=== PATIENT | female | born 1950 | race Caucasian/White ===

== ENCOUNTER 2017-07-06 10:04 | Outpatient (CLI) | payer MEDICARE, OTHER ==
--- NOTE | 2017-07-06 11:49 | RAD ---
CHEST TWO VIEWS: History: Dyspnea. Comparison: 06-23-16, 06-18-15 FINDINGS: Two views chest. Atherosclerosis of the aorta. Normal cardiac silhouette. The pulmonary vessels and hilum are normal. Costophrenic angles are clear. Lungs are hyperinflated. Chronic change in the lung bases and the right lung apex. No consolidation. No pneumothorax or osseous abnormality. IMPRESSION: Hyperinflation. Chronic changes. POS: [facility]
== END 2017-07-06 10:05 | disposition home or self-care (01) ==
LOC: RAD 10:04
PROVIDERS: ATTEND Internal Medicine Critical Care Medicine
DX: R06.00 Dyspnea, unspecified (principal); J98.11 Atelectasis
CPT/HCPCS: 71020

== ENCOUNTER 2017-11-24 12:57 | Outpatient (CLI) | payer MEDICARE, OTHER | END 2017-11-24 12:58 | disposition home or self-care (01) | LOC: BICMAMMO 12:57 | PROVIDERS: ATTEND Family Medicine | DX: Z12.31 Encounter for screening mammogram for malignant neoplasm of breast (principal) | CPT/HCPCS: 77063; 77067 ==

== ENCOUNTER 2018-02-25 15:23 | Outpatient (CLI) | payer MEDICARE, OTHER ==
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
== END 2018-02-25 15:24 | disposition home or self-care (01) ==
LOC: TBSIIMAG 15:23
PROVIDERS: ATTEND Orthopaedic Surgery
DX: S73.101A Unspecified sprain of right hip, initial encounter (principal); M16.11 Unilateral primary osteoarthritis, right hip

== ENCOUNTER 2018-04-16 10:31 | Observation (INO) | payer MEDICARE, OTHER ==
[2018-04-16] MEDS ORDERED: Nitroglycerin 2% Ointment 1 INCH/1 GM Packet ONE (10:58)
[2018-04-16 11:01] LABS: #Basophils 0.1 thou/uL (0.0-0.2); #Eosinphils 0.1 thou/uL (0.0-0.7); #Monocytes 0.5 thou/uL (0.11-0.59); #Neutrophils 4.6 thou/uL (1.40-6.50); %Eosinophils 1.1 % (0.0-10.0); %Lymphocytes 27.6 % (21.0-51.0); %Monocytes 6.5 % (0.0-10.0); %Neutrophils 63.8 % (42.0-75.0); Hemoglobin 16.4 g/dL (12.0-16.0); Mean Corpuscular HGB CONC 34.2 g/dL (32.0-36.0); Mean Corpuscular Hemoglobin 30.6 pg (27.0-31.0); Mean Corpuscular Volume 89.5 fL (78.0-98.0); Mean Platelet Volume 7.3 fL (7.4-10.4); Platelet Count 306 thou/uL (130-400); RBC Distribution Width 11.2 % (11.5-14.5); Red Blood Cell (RBC) Count 5.35 mill/uL (4.20-5.40); White Blood Cell (WBC) Count 7.2 thou/uL (4.8-10.8)
[2018-04-16 11:17] LABS: ALT (SGPT) 12 U/L (8-55); AST (SGOT) 17 U/L (5-34); Albumin 4.8 g/dL (3.4-4.8); Alkaline Phosphatase 44 U/L (40-150); Anion Gap 17 mmol/L (10-20); BUN (Urea Nitrogen) 14 mg/dL (9.8-20.1); Bilirubin, Total 0.5 mg/dL (0.2-1.2); CK (CPK) 70 U/L (29-168); Calc. Creatinine Clearance 0 mL/min (70-130); Calcium 10.4 mg/dL (7.8-10.44); Carbon Dioxide 23 mmol/L (23-31); Chloride 101 mmol/L (98-107); Estimated GFR-MDRD 68; Glucose 105 mg/dL (80-115); Protein, Total 8.8 g/dL (6.0-8.3); Sodium 137 mmol/L (136-145)
[2018-04-16 11:19] LABS: CKMB 0.8 ng/mL (0-6.6); Troponin I Less than 0.010 ng/mL (< 0.028)
--- NOTE | 2018-04-16 11:43 | RAD ---
CHEST 1 VIEW: HISTORY: Hypertension. Chest pain. COMPARISON: 07/06/17. FINDINGS: Atherosclerosis of the aorta. Enlarged cardiac silhouette. The pulmonary vessels and hilum are norm al. Costophrenic angles are clear. No consolidation or mass. Previously noted opacity of the right upper lobe is no longer appreciated. No pneumothorax or osseous abnormalities. IMPRESSION: 1. Atherosclerosis. 2. Hyperinflation with chronic changes. POS: [facility]
[2018-04-16] MEDS ORDERED: Labetalol HCl 100 MG/20 ML VIAL SLOW IVP PRN (13:13)
[2018-04-16] MEDS ORDERED: hydrALAZINE 20 MG/ML VIAL SLOW IVP PRN (13:13)
[2018-04-16 13:31] VITALS: BMI 22.1
[2018-04-16] MEDS: cloNIDine 0.1 MG TAB PO PRN (13:46)
[2018-04-16 14:15] LABS: Troponin I 0.019 ng/mL (< 0.028)
[2018-04-16] MEDS ORDERED: ALPRAZolam 0.25 MG TAB PO PRN (14:16)
[2018-04-16] MEDS ORDERED: Mag-Al 1200 mg/1200 mg/30 ML UDCUP PO PRN (14:26)
[2018-04-16] MEDS ORDERED: Ondansetron ODT 4 MG TAB PO PRN (14:26)
[2018-04-16] MEDS ORDERED: Acetaminophen 325 MG TAB PO PRN (14:26)
[2018-04-16] MEDS ORDERED: Senokot 8.6 MG TAB PO PRN (14:26)
[2018-04-16] MEDS ORDERED: Ondansetron HCl/PF 4 MG/2 ML Vial IVP PRN (14:26)
[2018-04-16] MEDS ORDERED: Calcium Carbonate 500 MG ChewTAB PO PRN (14:26)
[2018-04-16] MEDS ORDERED: Nitroglycerin 0.4 MG TAB (25 Tab Bottle) PO PRN (14:26)
--- NOTE | 2018-04-16 14:54 | HP ---
DATE OF ADMISSION: 04/16/2018 PRIMARY CARE PHYSICIAN: Dr. Juanito Montero. CHIEF COMPLAINT: Elevated blood pressure. HISTORY OF PRESENT ILLNESS: The patient is a 67-year-old female with labile hypertension, who presen evert to the emergency room with above complaints. The patient has a long history of hypertension and has tried various different medications. She is c urrently followed by Dr. Hickey. She used to measure her blood pressure on a daily basis; however, she discontinued this a few months ago. From last week onwards, she started checking her blood pressure and has been running high. Her blood pressure in the past has been in 140s. This week, her blood p ressure was running in 180s. She also had palpitations. She also claims to have lot of stress latel y. No chest pain, syncope, or focal neurologic deficit reported. She denies any epistaxis or hematu ana. She also has some chronic pain issues in the hip, which is followed by Dr. Ennis. In the emergency room, her blood pressure was 219/110 with a pulse rate of 115, respirations 70, temp erature 98.3 with O2 saturation 98% on room air. EKG showed sinus tachycardia with nonspecific ST-T- wave changes. A chest x-ray was negative for infiltrate. She received aspirin with nitro patch in [facility] emergency room at [facility]. She was transferred to this facility for admission. The patient denies any recent immobilization, travel, or shortness of breath. PAST MEDICAL HISTORY: 1. Hypertension, labile. 2. Anxiety. 3. Chronic obstructive pulmonary disease. 4. Hypothyroidism. 5. Diverticulosis. 6. Depression. 7. History of paroxysmal supraventricular tachycardia, requiring ablations x2. 8. Coronary artery disease, followed by Dr. Hickey. PAST SURGICAL HISTORY: 1. SVT ablation in 2006 and 2010. 2. Cardiac catheterization [place] [address] Hickey, report unavailable. 3. Carpal tunnel syndrome surgery in 1988. 4. Left shoulder surgery in 1965. 5. Right Shine's neuroma surgery in 1988. ALLERGIES: Patient is allergic to IODINE, PREDNISONE, TAMIFLU, AMBIEN. CURRENT HOME MEDICATIONS: Spiriva 2 puffs b.i.d., levothyroxine 112 mcg daily, Xanax as needed, Can pro 1 tablet daily, vitamin D3 daily. FAMILY HISTORY: Father of suicide. Mother had heart disease. Heart disease runs in her family . SOCIAL HISTORY: She is a former smoker, quit in 1995. She drinks wine almost on a daily basis. She is retired. She lives at home with her . She makes her own decision with the help of her fa mat. She is FULL CODE. REVIEW OF SYSTEMS: The following complete review of systems was negative, unless otherwise mentioned in the HPI or below: Constitutional: Weight loss or gain, ability to conduct usual activities. Sk in: Rash, itching. Eyes: Double vision, pain. ENT/Mouth: Nose bleeding, neck stiffness, pain, te nderness. Cardiovascular: Palpitations, dyspnea on exertion, orthopnea. Respiratory: Shortness of breath, wheezing, cough, hemoptysis, fever, or night sweats. Gastrointestinal: Poor appetite, abdo stanislav pain, heartburn, nausea, vomiting, constipation, or diarrhea. Genitourinary: Urgency, frequen cy, dysuria, nocturia. Musculoskeletal: Pain, swelling. Neurologic/Psychiatric: Anxiety, depressi on. Allergy/Immunologic: Skin rash, bleeding tendency. PHYSICAL EXAMINATION: VITAL SIGNS: As discussed above, last blood pressure was 226/105. GENERAL: A 67-year-old female, anxious appearing. HEENT: Head, atraumatic, normocephalic. Sclerae are anicteric. Moist mucous membrane, no oral lesi on. NECK: Supple, no JVD appreciated. No carotid bruit. LUNGS: Clear to auscultation bilaterally. No wheezing, rales, or rhonchi. HEART: S1 and S2 present. Regular rate and rhythm. No murmur, rubs, or gallops. ABDOMEN: Soft, nontender, bowel sounds present. EXTREMITIES: No edema or calf tenderness. NEUROLOGIC: Grossly nonfocal, moves all 4 extremities. PSYCHIATRY: Alert, awake, oriented x3. SKIN: Warm and dry. LYMPH NODES: No palpable lymph nodes in the neck. PERIPHERAL VASCULAR: Radial pulses palpable bilaterally. MUSCULOSKELETAL: No joint swelling or tenderness. LABORATORY FINDINGS: Troponins were negative. Sodium was 137, potassium 4, creatinine 0.84. LFTs i n normal range. WBC 7.2 with hemoglobin 16.4, platelets 306. EKG and chest x-ray, by my review, as discussed above. IMPRESSION: 1. Hypertensive urgency. This is probably precipitated by underlying stress and anxiety. We will s tart her on sustained-release Cardizem 60 mg twice a day along with clonidine as needed. We will sherman id beta blockers due to history of chronic obstructive pulmonary disease. She has tried Benicar in t he past, which gave her palpitations. I think an atrioventricular thalia blocking agent will be helpf ul with her palpitations and history of supraventricular tachycardia. Her troponin x2 have been nega tive. We will repeat 1 more set of troponin. She has a history of echocardiogram and stress test do ne at Dr. Hickey' office, which has been negative. She was advised to follow up with Dr. Hickey as an ou tpatient. 2. Anxiety/depression. She denies any suicidal ideation. We will continue Xanax. She will probabl y benefit from her antidepressant. 3. Hypothyroidism. We will continue levothyroxine. 4. Chronic obstructive pulmonary disease. We will continue Spiriva and add nebulizer treatment as n eeded. 5. Chronic kidney disease, stage 2. 6. History of paroxysmal supraventricular tachycardia, requiring ablation x2. Plan of care was discussed with the patient. She stated understanding. DISPOSITION: Probably in 24 hours.
[2018-04-16 17:15] LABS: Troponin I 0.036 ng/mL (< 0.028)
[2018-04-16] MEDS: Ipratropium Bromide 2.5 ml Neb NEB SCH (18:16)
[2018-04-16 20:49] LABS: Troponin I 0.015 ng/mL (< 0.028)
[2018-04-16] MEDS ORDERED: Diltiazem HCl SR 60 mg Capsule PO SCH (21:00)
[2018-04-17] MEDS: Ipratropium Bromide 2.5 ml Neb NEB SCH ×2 (00:05→06:26)
[2018-04-17] MEDS: cloNIDine 0.1 MG TAB PO PRN (02:29)
[2018-04-17] MEDS ORDERED: Levothyroxine Sodium 112 MCG TAB PO SCH (06:00)
[2018-04-17 09:02] VITALS: BP 157/76; TEMP 98.2
--- NOTE | 2018-04-18 14:52 | DIS ---
DATE OF ADMISSION: 04/16/2018 DATE OF DISCHARGE: 04/17/2018 DISCHARGE DISPOSITION: Home. FOLLOWUP: 1. Follow up with primary care physician, Dr. Juanito Montero in 1 week. 2. Follow up with Cardiology, Dr. Hickey, in next 2 weeks. ALLERGIES: Patient is allergic to IODINE. DISCHARGE MEDICATIONS: 1. Diltiazem 30 mg 3 times a day. 2. Clonidine as needed. 3. Levothyroxine 112 mcg daily. 4. Spiriva two puffs b.i.d. 5. Vitamin D3 daily. 6. Prempro daily. The patient was seen and examined on the day of discharge, denies any new complaints, no chest pain, shortness of breath, palpitations. Her blood pressure on the day of discharge is 124/57 and 157/76. BRIEF HOSPITAL COURSE: The patient is a 67-year-old female with labile hypertension who presented to the hospital with elevated blood pressure. Please refer to the history and physical for further det ails. The patient was admitted to the hospital with a diagnosis of hypertensive urgency. She responded alma delia y well to IV and oral antihypertensives. She probably has white coat hypertension. Beta blockers we re avoided due to COPD. I think stress and anxiety is probably contributing to her symptoms. She wa s started on low dose Cardizem with good blood pressure response. She was advised to monitor her blo od pressure on a daily basis. She has done echocardiogram and stress test at Dr. Hickey's office in past. Her troponins 3/4 were negative. One troponin was 0.036, probably secondary to elevated blo od pressure. FINAL DIAGNOSES: 1. Hypertensive urgency, resolved. 2. Anxiety, depression. Patient takes Xanax as needed. 3. Hypothyroidism. 4. Chronic obstructive pulmonary disease. 5. Chronic kidney disease stage 2. 6. Indeterminate troponins due to elevated blood pressure. Plan of care was discussed with the patient. She stated understanding.
== END 2018-04-17 09:52 | disposition home or self-care (01) ==
LOC: SCSER 10:31 → 2SW 12:58
PROVIDERS: ADMIT Internal Medicine; ATTEND Internal Medicine
DX: I16.0 Hypertensive urgency (principal); I12.9 Hypertensive chronic kidney disease with stage 1 through stage 4 chronic kidney disease, or unspecified chronic kidney disease; N18.2 Chronic kidney disease, stage 2 (mild); F41.8 Other specified anxiety disorders; E03.9 Hypothyroidism, unspecified; J44.9 Chronic obstructive pulmonary disease, unspecified; I25.10 Atherosclerotic heart disease of native coronary artery without angina pectoris; Z87.891 Personal history of nicotine dependence; Z91.041 Radiographic dye allergy status; Z79.899 Other long term (current) drug therapy; Z88.8 Allergy status to other drugs, medicaments and biological substances
CPT/HCPCS: 71045; 80053; 82550; 82553; 84484 ×2; 85025; 93005; 99285; G0378; 36415; J0360; J7644

== ENCOUNTER 2018-05-07 15:54 | Emergency (ER) | payer MEDICARE, OTHER ==
[2018-05-07] MEDS ORDERED: Nitroglycerin 0.4 MG TAB (25 Tab Bottle) ONE (16:53)
[2018-05-07 17:12] LABS: #Basophils 0.1 thou/uL (0.0-0.2); #Eosinphils 0.1 thou/uL (0.0-0.7); #Lymphocytes 1.6 thou/uL (1.20-3.40); #Monocytes 0.7 thou/uL (0.11-0.59); #Neutrophils 8.2 thou/uL (1.40-6.50); %Basophils 0.7 % (0.0-1.0); %Eosinophils 0.9 % (0.0-10.0); %Lymphocytes 14.8 % (21.0-51.0); %Monocytes 6.5 % (0.0-10.0); %Neutrophils 77.1 % (42.0-75.0); Hemoglobin 15.7 g/dL (12.0-16.0); Mean Corpuscular HGB CONC 33.6 g/dL (32.0-36.0); Mean Corpuscular Hemoglobin 32.1 pg (27.0-31.0); Mean Corpuscular Volume 95.3 fL (78.0-98.0); Mean Platelet Volume 6.4 fL (7.4-10.4); Platelet Count 368 thou/uL (130-400); RBC Distribution Width 11.9 % (11.5-14.5); Red Blood Cell (RBC) Count 4.91 mill/uL (4.20-5.40); White Blood Cell (WBC) Count 10.6 thou/uL (4.8-10.8)
--- NOTE | 2018-05-07 17:13 | RAD ---
PORTABLE CHEST: 05/07/18 HISTORY: Chest pain. COMPARISON: 04/16/18 study. Heart size appears slightly enlarged. There are atherosclerotic changes of the aorta. The lungs are c lear of infiltrative process. There is scoliotic changes of the spine. IMPRESSION: Mild cardiomegaly. POS: [facility]
[2018-05-07 17:33] LABS: ALT (SGPT) 10 U/L (8-55); AST (SGOT) 14 U/L (5-34); Albumin 4.4 g/dL (3.4-4.8); Alkaline Phosphatase 42 U/L (40-150); Anion Gap 18 mmol/L (10-20); BUN (Urea Nitrogen) 13 mg/dL (9.8-20.1); Bilirubin, Total 0.5 mg/dL (0.2-1.2); CK (CPK) 66 U/L (29-168); Calc. Creatinine Clearance 0 mL/min (70-130); Calcium 9.7 mg/dL (7.8-10.44); Carbon Dioxide 18 mmol/L (23-31); Chloride 98 mmol/L (98-107); Estimated GFR-MDRD 67; Globulin 3.5 g/dL (2.4-3.5); Glucose 94 mg/dL (80-115); Lipase 16 U/L (8-78); Potassium 4.8 mmol/L (3.5-5.1); Protein, Total 7.9 g/dL (6.0-8.3); Sodium 129 mmol/L (136-145)
[2018-05-07 17:37] LABS: CKMB 1.1 ng/mL (0-6.6); Troponin I Less than 0.010 ng/mL (< 0.028)
[2018-05-07] MEDS ORDERED: Labetalol HCl 100 MG/20 ML VIAL ONE (18:33)
== END 2018-05-07 19:17 | disposition home or self-care (01) ==
LOC: ERS 15:54
DX: I16.0 Hypertensive urgency (principal); R10.9 Unspecified abdominal pain; F41.9 Anxiety disorder, unspecified; J44.9 Chronic obstructive pulmonary disease, unspecified; I47.1 Supraventricular tachycardia; Z87.891 Personal history of nicotine dependence
CPT/HCPCS: 36415; 71045; 80053; 82550; 82553; 83690; 83880; 84484; 85025; 93005

== ENCOUNTER 2018-05-09 14:46 | Inpatient (IN) | payer MEDICARE, OTHER ==
[2018-05-09 15:20] LABS: #Basophils 0.1 thou/uL (0.0-0.2); #Eosinphils 0.1 thou/uL (0.0-0.7); #Lymphocytes 1.9 thou/uL (1.20-3.40); #Monocytes 0.6 thou/uL (0.11-0.59); #Neutrophils 4.6 thou/uL (1.40-6.50); %Basophils 1.3 % (0.0-1.0); %Eosinophils 1.8 % (0.0-10.0); %Lymphocytes 25.8 % (21.0-51.0); %Monocytes 8.2 % (0.0-10.0); %Neutrophils 62.9 % (42.0-75.0); Hemoglobin 15.7 g/dL (12.0-16.0); Mean Corpuscular HGB CONC 34.5 g/dL (32.0-36.0); Mean Corpuscular Hemoglobin 32.6 pg (27.0-31.0); Mean Corpuscular Volume 94.5 fL (78.0-98.0); Mean Platelet Volume 6.3 fL (7.4-10.4); Platelet Count 369 thou/uL (130-400); RBC Distribution Width 11.8 % (11.5-14.5); Red Blood Cell (RBC) Count 4.81 mill/uL (4.20-5.40); White Blood Cell (WBC) Count 7.3 thou/uL (4.8-10.8)
[2018-05-09] MEDS ORDERED: Lorazepam 2 MG/ML VIAL ONE (15:24)
[2018-05-09] MEDS ORDERED: Nitroglycerin 2% Ointment 1 INCH/1 GM Packet ONE (15:25)
[2018-05-09] MEDS ORDERED: Nitroglycerin 0.4 MG TAB (25 Tab Bottle) ONE (15:25)
[2018-05-09 15:39] LABS: ALT (SGPT) 12 U/L (8-55); AST (SGOT) 19 U/L (5-34); Albumin 4.7 g/dL (3.4-4.8); Alkaline Phosphatase 44 U/L (40-150); Anion Gap 16 mmol/L (10-20); BUN (Urea Nitrogen) 11 mg/dL (9.8-20.1); Bilirubin, Total 0.5 mg/dL (0.2-1.2); CK (CPK) 155 U/L (29-168); Calc. Creatinine Clearance 0 mL/min (70-130); Carbon Dioxide 21 mmol/L (23-31); Chloride 98 mmol/L (98-107); Estimated GFR-MDRD 68; Globulin 3.9 g/dL (2.4-3.5); Glucose 93 mg/dL (80-115); Lipase 18 U/L (8-78); Potassium 3.9 mmol/L (3.5-5.1); Protein, Total 8.6 g/dL (6.0-8.3); Sodium 131 mmol/L (136-145)
[2018-05-09 15:44] LABS: Troponin I Less than 0.010 ng/mL (< 0.028)
--- NOTE | 2018-05-09 16:15 | RAD ---
CHEST 1 VIEW: Date: 05/09/18 HISTORY: Hypertension. Chest pain. COMPARISON: 05/07/18. FINDINGS: Cardiac silhouette remains upper limits of normal in size. Pulmonary vasculature is unremarkable. Daryl gs remain hyperinflated. Mediastinum is midline. No lobar consolidation or evidence of pneumothorax. quality assurance monitor body leads overlie the chest. IMPRESSION: Chronic-type findings are stable. No active cardiopulmonary abnormalities are demonstrated. POS: [facility]
[2018-05-09 16:30] LABS: Bilirubin Negative (Negative); Blood, Urine Negative (Negative); Clarity CLEAR (Clear); Glucose, Urine (Dipstick) Negative (Negative); Leukocyte Negative (Negative); Nitrite Negative (Negative); Protein, Urine (Dipstick) Negative (Neg-Trace); Specific Gravity, Urine 1.008 (1.002-1.036); Urobilinogen 0.2 mg/dL (0.2-1.0); pH, Urine 5.5 (5.0-9.0)
[2018-05-09 19:19] LABS: Troponin I Less than 0.010 ng/mL (< 0.028)
[2018-05-09] MEDS ORDERED: cloNIDine 0.1 MG TAB PO PRN (21:39)
[2018-05-09] MEDS ORDERED: Acetaminophen 500 MG TAB ONE (21:50)
[2018-05-09 22:00] LABS: Troponin I Less than 0.010 ng/mL (< 0.028)
[2018-05-09] MEDS ORDERED: Lisinopril 10 MG TAB PO SCH (22:00)
[2018-05-09] MEDS ORDERED: HYDROcodone/Acetaminophen 5/325 mg Tablet PO PRN (22:44)
[2018-05-09] MEDS ORDERED: Ondansetron ODT 4 MG TAB PO PRN (22:44)
[2018-05-09] MEDS ORDERED: Amlodipine 10 MG TAB PO SCH (23:30)
[2018-05-09 23:55] VITALS: BMI 21.8
[2018-05-10] MEDS: Ipratropium Bromide 2.5 ml Neb NEB SCH ×4 (00:46→18:38)
[2018-05-10] MEDS ORDERED: ALPRAZolam 0.25 MG TAB PO PRN (00:47)
[2018-05-10] MEDS: Labetalol HCl 100 MG/20 ML VIAL SLOW IVP PRN (01:02)
--- NOTE | 2018-05-10 01:18 | HP ---
DATE OF ADMISSION: 05/10/2018 CHIEF COMPLAINT: Elevated blood pressures. HISTORY OF PRESENT ILLNESS: This is a 67-year-old white female with a known history of severe anxiet y disorder. The patient has a known history of hypertension and has huge list of allergies to every antihypertensive medication. She was on clonidine for many years and for the past few weeks she was noticing she was having some itching in the throat. She started stopping most of the medications and she then figured out and when she took a clonidine, she developed itchiness of the throat and she ca lled Dr. Sheppard's office who suggested to stop the clonidine and since then, the patient was having elev ated blood pressures which was measured at 200 systolic at home, so she has decided to come to the ER . In ER, her blood pressures were in 227 and she was unable to take any medications. He says she wa s allergic to LISINOPRIL which causes swelling of her arms. She was allergic to HYDRALAZINE as it ca uses palpitations and she says she is allergic to METOPROLOL, which makes her depressed, which, most of them are side effects. She also complains of allergy to HYDRALAZINE, according to her, which caus es itching of the throat also along with palpitations. The patient denies having any chest pain at t his time. No nausea, no vomiting, no diarrhea, no constipation. When offered Ativan for her, she me ntioned that she has a history of depression and she gets suicidal thoughts on giving Ativan. The pa kim sees Dr. Hickey and her nurse practitioner. PAST MEDICAL HISTORY: 1. Hypertension. 2. Severe anxiety disorder. 3. History of chronic obstructive pulmonary disease. 4. Hypothyroidism. 5. History of depression. 6. History of paroxysmal supraventricular tachycardia. 7. Coronary artery disease. PAST SURGICAL HISTORY: 1. Supraventricular tachycardia ablation in 2006 and 2010. 2. Cardiac catheterization [place] [address] Hickey 3. Carpal tunnel syndrome. 4. Left shoulder surgery. 5. Right Shine's neuroma. ALLERGIES: IODINE, PREDNISONE, TAMIFLU, AMBIEN, HYDRALAZINE, LISINOPRIL, and CLONIDINE. HOME MEDICATIONS: 1. She is on alprazolam 0.25 mg p.o. daily. 2. Tiotropium 1 capsule daily. 3. Estrogen. 4. Levothyroxine. REVIEW OF SYSTEMS: All 12 systems are reviewed with the patient thoroughly and found to be negative at this time. Systems reviewed are HEENT, CVS, FRUIT VENDOR, respiratory, GI, , musculoskeletal, skin, inte gumentary, and psychiatry. All systems are reviewed and found to be negative at this time. The following complete review of systems was negative, unless otherwise mentioned in the HPI or below: Constitutional: Weight loss or gain, sense of well-being, ability to conduct usual activities, exerc ise tolerance. Skin/Breast: Rash, itching, changes in hair growth or loss, nail changes, breast lumps, tenderness, swelling, nipple discharge. Eyes: Vision, double vision, tearing, blind spots, pain. ENT/Mouth: Headaches (location, time of onset, duration, precipitating factors), vertigo, lightheadedness, injury. Vision, double vision, tearing, blind spots, pain, nose b leeding, colds, obstruction, discharge, dental difficulties, gingival bleeding, dentures, neck stiffn ess, pain, tenderness, masses in thyroid or other areas Cardiovascular: Precordial pain, substernal distress, palpitations, syncope, dyspnea on exertion, or thopnea, nocturnal paroxysmal dyspnea, edema, cyanosis, hypertension, heart murmurs, varicosities, ph lebitis, claudication. Respiratory: Pain, shortness of breath, wheezing, stridor, cough, hemoptysis, fever or night sweats Gastrointestinal: Poor appetite, dysphagia, indigestion, abdominal pain, heartburn, eructation, naus ea, vomiting, hematemesis, jaundice, constipation, or diarrhea, abnormal stools (ashly-colored, tarry, bloody, greasy, foul smelling), flatulence, hemorrhoids, recent changes in bowel habits. Genitourinary: Urgency, frequency, dysuria, nocturia, hematuria, polyuria, oliguria, unusual (or mari nge in) color of urine, stones, hesitancy, change in size of stream, dribbling, acute retention or in continence, libido, potency. Musculoskeletal: Pain, swelling, redness or heat of muscles or joints, limitation, of motion, muscular weakness, atrophy, cramps. Neurologic/Psychiatric: Convulsions, paralyses, tremor, incoordination, parasthesias, difficulties w ith memory of speech, sensory or motor disturbances, or muscular coordination (ataxia, tremor), emoti onal problems, anxiety, depression, previous psychiatric care, unusual perceptions, hallucinations. Allergy/Immunologic: Skin rash, anemia, bleeding tendency, polydipsia, polyuria, intolerance to heat or cold. FAMILY HISTORY: Father of suicide and heart disease runs in her family. SOCIAL HISTORY: She is a former smoker. No history of alcohol, no history of illicit drug use. She lives independently with her . PHYSICAL EXAMINATION: VITAL SIGNS: Blood pressure is 183/80, heart rate 78, respiratory rate 16, saturation 98%. GENERAL: The patient is moderately built and moderately nourished. She does not appears to be in ac makah distress at this time, alert, oriented x3. HEENT: Atraumatic, normocephalic, PERRLA. Extraocular muscles intact. Oral mucosa is pink and mois t. CARDIOVASCULAR: S1, S2 normal. No murmurs, rubs or gallops. LUNGS: Bilateral air entry was equal. No wheezing, no crackles. ABDOMEN: Soft, nontender. No guarding or rebound tenderness. Bowel sounds normal. MUSCULOSKELETAL: No calf tenderness. No pedal edema. No joint tenderness. No joint swelling. SKIN: No cyanosis, no erythema, no rash, no pallor. FRUIT VENDOR: Cranial nerve examination II through XII intact. No focal deficits are noted. LABORATORY DATA: Show WBC 7.3, hemoglobin 15.5, hematocrit 45.5 and platelets 369. Sodium is 131, p otassium 3.9, chloride is 98, BUN is 11, creatinine 0.84. UA was negative for any UTI. IMAGING DATA: Chest x-ray was unremarkable. No evidence of any acute cardiopulmonary process. ASSESSMENT: 1. Hypertensive urgency. 2. Severe anxiety disorder. 3. History of chronic obstructive pulmonary disease. 4. Hyperlipidemia. 5. History of coronary artery disease. 6. History of paroxysmal atrial fibrillation. PLAN: 1. Plan is to closely monitor this patient as she has multiple allergies. We will consult Cardiolog y to address her hypertension. At this time, there is no other medication left except her labetalol. We will use labetalol 20 mg q.6 hours for systolic more than 160. If she tolerates this, we will p silvia to change to p.o. labetalol 200 mg t.i.d. 2. The patient has severe anxiety disorder. She would definitely benefit from getting a psych opini on as outpatient. She needs to be started on some definitive anxiety medications, she is on alprazol am. She takes as needed and she has high risk for suicides according to her with benzodiazepines. 3. The patient has history of coronary artery disease. We will restart the patient on aspirin at th is time. 4. She has history of COPD, no evidence of any COPD exacerbation is noted. 5. Deep venous thrombosis prophylaxis, Lovenox. I spent 75 minutes with this patient at the time of dictation.
[2018-05-10 05:57] LABS: #Eosinphils 0.2 thou/uL (0.0-0.7); #Lymphocytes 1.6 thou/uL (1.20-3.40); #Monocytes 0.7 thou/uL (0.11-0.59); #Neutrophils 4.5 thou/uL (1.40-6.50); %Basophils 0.6 % (0.0-1.0); %Eosinophils 2.4 % (0.0-10.0); %Lymphocytes 23.3 % (21.0-51.0); %Neutrophils 63.7 % (42.0-75.0); Hemoglobin 12.9 g/dL (12.0-16.0); Mean Corpuscular Volume 94.3 fL (78.0-98.0); Mean Platelet Volume 6.5 fL (7.4-10.4); Platelet Count 318 thou/uL (130-400); RBC Distribution Width 11.7 % (11.5-14.5); Red Blood Cell (RBC) Count 3.92 mill/uL (4.20-5.40)
[2018-05-10 06:14] LABS: Anion Gap 12 mmol/L (10-20); BUN (Urea Nitrogen) 10 mg/dL (9.8-20.1); Calc. Creatinine Clearance 74 mL/min (70-130); Calcium 9.1 mg/dL (7.8-10.44); Carbon Dioxide 22 mmol/L (23-31); Chloride 101 mmol/L (98-107); Estimated GFR-MDRD 85; Glucose 86 mg/dL (80-115); Potassium 3.5 mmol/L (3.5-5.1); Sodium 131 mmol/L (136-145)
[2018-05-10] MEDS: Levothyroxine Sodium 112 MCG TAB PO SCH (06:17)
[2018-05-10] MEDS: Amlodipine 10 MG TAB PO SCH (08:38)
[2018-05-10] MEDS: Acetaminophen 325 MG TAB PO PRN ×2 (08:39→15:45)
[2018-05-10] MEDS: Enoxaparin Sodium 40 MG/0.4 ML SYRINGE SC SCH (08:40)
[2018-05-10] MEDS: Docusate 100 MG CAP PO SCH ×2 (08:40→19:44)
[2018-05-10] MEDS ORDERED: MEDROXYPROGESTERONE PO SCH (09:00)
[2018-05-10] MEDS ORDERED: [UNRECOGNIZED DRUG - OTHER] PO SCH (09:00)
[2018-05-10] MEDS ORDERED: Spiriva 18 MCG CAP (Box of 5 Caps) INH SCH (09:00)
[2018-05-10] MEDS ORDERED: CONJUGATED ESTROGENS PO SCH (09:00)
[2018-05-10] MEDS ORDERED: Lisinopril 10 MG TAB PO SCH (09:00)
[2018-05-10] MEDS ORDERED: Famotidine/PF 20 mg/2ml Vial SLOW IVP SCH (09:00)
[2018-05-10] MEDS ORDERED: Prevnar 13-Val Conj/PF 0.5 ML SYRINGE IM ONE (09:00)
--- NOTE | 2018-05-10 11:25 | PDOC.PN ---
- Subjective Encounter Start Date: 05/10/18 Encounter Start Time: 11:23 Ms. Robles was seen today in follow-up. She has multiple medical complaints. - Objective Resuscitation Status: Resuscitation Status FULL:Full Resuscitation Vital Signs & Weight: Vital Signs (12 hours) Temp Pulse Resp BP BP Pulse Ox 05/10/18 08:38 82 05/10/18 08:00 97.8 F 82 15 05/10/18 07:12 97.8 F 82 15 170/78 H 99 05/10/18 04:22 98 05/10/18 03:44 97.7 F 72 16 154/72 H 98 05/10/18 01:32 146/67 H 05/10/18 01:02 78 205/90 H 05/10/18 00:36 205/91 H 05/10/18 00:01 97.4 F L 78 16 183/80 H 98 05/09/18 23:41 78 183/80 H Weight Weight 131 lb 5 oz I&O: 05/09/18 05/10/18 05/11/18 06:59 06:59 06:59 Intake Total 850 Balance 850 Result Diagrams: 05/10/18 05:32 05/10/18 05:32 Phys Exam - Physical Examination HEENT: PERRLA Respiratory: no wheezing, no rales, no rhonchi, clear to auscultation bilateral Cardiovascular: RRR, no significant murmur, no rub Gastrointestinal: soft, non-tender, positive bowel sounds Musculoskeletal: no edema Dx/Plan (1) Anxiety Code(s): F41.9 - ANXIETY DISORDER, UNSPECIFIED Status: Acute (2) Hypertensive urgency Code(s): I16.0 - HYPERTENSIVE URGENCY Status: Acute - Plan * HTN- blood pressure is a bit elevated- she unfortunately has a lot of side effects to multiple medications,and has tried some in the past but does not remember the reactions- Will consult Dr. Mendoza for evaluation, and I suspect she can be discharged home later today after CArdiology evaluation..
[2018-05-10] MEDS ORDERED: Carvedilol 3.125 MG TAB PO SCH (19:45)
[2018-05-10] MEDS: Famotidine 20 MG TAB PO SCH (19:45)
[2018-05-10] MEDS: ALPRAZolam 0.25 MG TAB PO PRN (21:19)
[2018-05-11] MEDS: Ipratropium Bromide 2.5 ml Neb NEB SCH ×4 (00:08→19:25)
--- NOTE | 2018-05-11 01:58 | CON ---
DATE OF CONSULTATION: 05/10/2018 HISTORY OF PRESENT ILLNESS: Ivette Robles is a 67-year-old white female patient of Dr. Hickey. She was admitted with difficult to control hypertension. She has previously undergone cardiac catheterization by Dr. Hickman in [facility] and apparently had mild disease in the right coronary artery. She also has undergone ablation of SVT in 07/2007 and in 02/2008. She has had problems with all types of blood pressure medicines. In talking with her about her side effects, she tends to have a lot of perioral paresthesias type feelings as well as feeling that things crawling on her head and sometimes problems with breathing whenever she takes certain types of medications. She now comes in with poorly controlled blood pressure again. I am not certain that there is anything acutely different than before. She denies any chest discomfort or shortness of breath. PAST MEDICAL HISTORY: Hypertension in general on no medications, hypothyroidism , COPD, history of SVT with ablation x2, anxiety, ischemic colitis. OPERATIONS: Shoulder surgery, removal of ganglion from right foot, carpal tunnel surgery, and right wrist surgery. CURRENT MEDICATIONS: Alprazolam 1 tablet daily p.r.n., levothyroxine 112 mcg daily, Spiriva 1 capsule daily, Spiriva 2 puffs b.i.d., Prempro 1 daily. ALLERGIES: IODINE, OLMESARTAN, CLONIDINE, DILTIAZEM, HYDRALAZINE, METOPROLOL. SOCIAL HISTORY: She is a former smoker. REVIEW OF SYSTEMS: Twelve-point review of systems, otherwise unremarkable. PHYSICAL EXAMINATION: VITAL SIGNS: Blood pressure 176/80, pulse of 79. HEENT: PERRL. NECK: Supple. CHEST: Clear. CARDIAC: S1, S2 are normal without any S3, S4, or murmurs. ABDOMEN: Normal bowel sounds. EXTREMITIES: Revealed no clubbing, cyanosis, or edema. NEUROLOGIC: Grossly intact. SKIN: Warm and dry. LABORATORY DATA: EKG reveals normal sinus rhythm, possible left atrial enlargement, otherwise unremarkable. CBC is normal. Sodium 131, potassium 3.5 , chloride 101, carbon dioxide 22, BUN 10, creatinine 0.69. Cardiac enzymes x3 are normal. BNP 66.9. IMPRESSION: 1. Anxiety. 2. Hypertension with side effects with every medication. All the side effects sounds pretty much the same with perioral paresthesias as well as feeling things crawling on her head and arm swelling at times. PLAN: The patient may certainly benefit from a scheduled anxiolytic. I will start her on very low-dose carvedilol - 3.125 b.i.d. Also, consideration could be given to Alejandro if she has problems with carvedilol; however, I doubt that her blood pressure will be adequately controlled until her chronic anxiety is controlled. MTDD
[2018-05-11] MEDS ORDERED: diphenhydrAMINE 50 MG/ML VIAL IVP SCH (04:15)
[2018-05-11] MEDS: Labetalol HCl 100 MG/20 ML VIAL SLOW IVP PRN ×2 (04:31→23:28)
[2018-05-11] MEDS: Levothyroxine Sodium 112 MCG TAB PO SCH (05:14)
[2018-05-11] MEDS: Carvedilol 3.125 MG TAB PO SCH ×2 (08:37→17:04)
[2018-05-11] MEDS: Enoxaparin Sodium 40 MG/0.4 ML SYRINGE SC SCH (08:37)
[2018-05-11] MEDS: Famotidine 20 MG TAB PO SCH ×2 (08:37→21:03)
[2018-05-11] MEDS: Docusate 100 MG CAP PO SCH ×2 (08:37→21:03)
[2018-05-11] MEDS: Amlodipine 10 MG TAB PO SCH (08:39)
--- NOTE | 2018-05-11 12:29 | PDOC.CTH ---
Cardiology Progress Note - Subjective Pt. without symptoms but still uncontrollable BP. - Objective Vital Signs Temp Pulse Resp BP BP Pulse Ox 05/11/18 12:01 73 173/88 H 05/11/18 11:28 97.9 F 81 18 98 05/11/18 08:39 73 05/11/18 07:56 98.3 F 73 18 05/11/18 07:20 97.8 F 72 15 148/72 H 96 05/11/18 05:14 73 152/88 H 05/11/18 04:31 84 186/83 H 05/11/18 03:45 98.0 F 84 16 186/83 H 98 Weight 131 lb 5 oz 05/10/18 05/11/18 05/12/18 06:59 06:59 06:59 Intake Total 850 1184 Output Total 600 Balance 850 584 - Physical Examination General/Neuro: alert & oriented x3 Neck: no JVD present Lungs: CTA Heart: RRR Abdomen: no HSM, NT/ND - Labs Result Diagrams: 05/10/18 05:32 05/10/18 05:32 Troponin/CKMB CK-MB (CK-2) 2.0 ng/mL (0-6.6) 05/09/18 15:10 Troponin I Less than 0.010 ng/mL (< 0.028) 05/09/18 21:27 - Assessment/Plan 1. HTN: add Cardura, continue Coreg. continue to monitor.
[2018-05-11] MEDS ORDERED: Doxazosin 2 MG TAB PO SCH (13:00)
--- NOTE | 2018-05-11 15:32 | PDOC.PN ---
- Subjective Encounter Start Date: 05/11/18 (f/u htn) Encounter Start Time: 15:31 Subjective: Pt reports feeling tired today, some intermittent pressure in -: her lower chest. Started a new med and feels like her lips -: are red - Objective Resuscitation Status: Resuscitation Status FULL:Full Resuscitation Vital Signs & Weight: Vital Signs (12 hours) Temp Pulse Resp BP BP Pulse Ox 05/11/18 12:01 73 173/88 H 05/11/18 11:28 97.9 F 81 18 98 05/11/18 08:39 73 05/11/18 07:56 98.3 F 73 18 05/11/18 07:20 97.8 F 72 15 148/72 H 96 05/11/18 05:14 73 152/88 H 05/11/18 04:31 84 186/83 H 05/11/18 03:45 98.0 F 84 16 186/83 H 98 Weight Weight 131 lb 5 oz I&O: 05/10/18 05/11/18 05/12/18 06:59 06:59 06:59 Intake Total 850 1184 Output Total 600 Balance 850 584 Result Diagrams: 05/10/18 05:32 05/10/18 05:32 EKG Reviewed by me: Yes (tele - sinus 60-70's) Phys Exam - Physical Examination Constitutional: NAD Respiratory: no wheezing, no rales, no rhonchi, clear to auscultation bilateral Cardiovascular: RRR, no significant murmur Gastrointestinal: soft, non-tender, no distention, positive bowel sounds Musculoskeletal: no edema, pulses present Neurological: non-focal, moves all 4 limbs Psychiatric: normal affect Skin: no rash Dx/Plan (1) Hyponatremia Code(s): E87.1 - HYPO-OSMOLALITY AND HYPONATREMIA Status: Acute (2) Hypertensive urgency Code(s): I16.0 - HYPERTENSIVE URGENCY Status: Acute (3) Hypothyroid Code(s): E03.9 - HYPOTHYROIDISM, UNSPECIFIED Status: Chronic Qualifiers: Hypothyroidism type: unspecified Qualified Code(s): E03.9 - Hypothyroidism , unspecified (4) COPD (chronic obstructive pulmonary disease) Status: Chronic Qualifiers: Emphysema type: unspecified (5) Anxiety Code(s): F41.9 - ANXIETY DISORDER, UNSPECIFIED Status: Chronic - Plan * Labile blood pressures - appreciate cardiology consult and patient started on cardura. she is tolerating low dose carvedilol. BP noted to be over 200 systolic today - she is unsafe for discharge to home. Due to intolerance of multiple bp meds in the past, she is being started on low dose meds which can be titrated up. * On levothyroxine - last tsh in Oct -will add one to AM labs * hyponatremia -uncertain etiology, not on meds that should cause this. Check TSH, urine studies * * dvt prophy - ambulatory * gi prophy - not indicated * code status full. * * anticipate d/c tomorrow if bp's are stable and she is cleared by cardiology
[2018-05-11 19:14] LABS: Osmolality, Urine 320 mOsm/kg (300-900)
[2018-05-11 19:20] LABS: Sodium, Urine 43 mmol/L (Not Available)
[2018-05-11] MEDS: ALPRAZolam 0.25 MG TAB PO PRN (21:03)
[2018-05-11] MEDS: diphenhydrAMINE 50 MG/ML VIAL IVP PRN (23:20)
[2018-05-12] MEDS: Ipratropium Bromide 2.5 ml Neb NEB SCH ×3 (00:38→13:43)
[2018-05-12] MEDS: Levothyroxine Sodium 112 MCG TAB PO SCH (05:59)
[2018-05-12 06:45] LABS: Anion Gap 14 mmol/L (10-20); BUN (Urea Nitrogen) 13 mg/dL (9.8-20.1); Calc. Creatinine Clearance 69 mL/min (70-130); Carbon Dioxide 22 mmol/L (23-31); Chloride 100 mmol/L (98-107); Estimated GFR-MDRD 78; Glucose 93 mg/dL (80-115); Potassium 3.7 mmol/L (3.5-5.1); Sodium 132 mmol/L (136-145)
[2018-05-12] MEDS: Carvedilol 3.125 MG TAB PO SCH ×2 (08:49→16:13)
[2018-05-12] MEDS: Doxazosin 2 MG TAB PO SCH (08:50)
[2018-05-12] MEDS: Famotidine 20 MG TAB PO SCH (08:50)
[2018-05-12] MEDS: Docusate 100 MG CAP PO SCH ×2 (08:50→20:15)
[2018-05-12] MEDS: Enoxaparin Sodium 40 MG/0.4 ML SYRINGE SC SCH (08:51)
--- NOTE | 2018-05-12 12:06 | PDOC.PN ---
- Subjective Encounter Start Date: 05/12/18 (f/u hyponatremia) Encounter Start Time: 12:05 Subjective: Pt reports being emotional last night from memories of her -: mom, and bp was elevated. States she feels of from -: benadryl with labetalol. Denies any difficulty breathing Having leg cramps at night, and no bm since admission - Objective Vital Signs & Weight: Vital Signs (12 hours) Temp Pulse Resp BP Pulse Ox 05/12/18 08:47 98.4 F 76 18 141/74 H 96 05/12/18 03:41 98.7 F 84 16 162/74 H 96 05/12/18 00:19 73 20 167/77 H Weight Weight 130 lb 11.2 oz I&O: 05/11/18 05/12/18 05/13/18 06:59 06:59 06:59 Intake Total 924 Output Total 700 Balance 224 Result Diagrams: 05/10/18 05:32 05/12/18 05:32 EKG Reviewed by me: Yes (tele sinus 70-100's) Phys Exam - Physical Examination Constitutional: NAD Respiratory: no wheezing, no rales, no rhonchi Cardiovascular: RRR, no significant murmur Gastrointestinal: soft, non-tender, no distention, positive bowel sounds Musculoskeletal: no edema, pulses present Neurological: non-focal, moves all 4 limbs Psychiatric: A&O x 3 Deviation from normal: slightly anxious appearing Skin: no rash Dx/Plan (1) Hyponatremia Code(s): E87.1 - HYPO-OSMOLALITY AND HYPONATREMIA Status: Acute (2) Hypertensive urgency Code(s): I16.0 - HYPERTENSIVE URGENCY Status: Acute (3) Hypothyroid Code(s): E03.9 - HYPOTHYROIDISM, UNSPECIFIED Status: Chronic Qualifiers: Hypothyroidism type: unspecified Qualified Code(s): E03.9 - Hypothyroidism , unspecified (4) COPD (chronic obstructive pulmonary disease) Status: Chronic Qualifiers: Emphysema type: unspecified (5) Anxiety Code(s): F41.9 - ANXIETY DISORDER, UNSPECIFIED Status: Chronic (6) Leg cramps Code(s): R25.2 - CRAMP AND SPASM Status: Acute - Plan * HTN urgency - better today, appreciate Cardiology adjusting meds * * anxious sx - needs f/u with Dr Montero for discussion and consideration of medication * * hyponatremia - urine studies c/w siadh. Pt also has a very low sodium diet at home. Stable today * * hypothyroid - tsh slightly elevated - discussed increasing synthroid now, pt prefers to have this adjusted with Dr. Montero * * leg cramps - add magnesium with dinner * constipation - add scheduled miralax and prn lactulose * * dvt prophy - scd's and ambulatory, will d/c lovenox * gi prophyh - not indicated * code status full * * home when cleared by cardiology * reviewed plan of care with patient, no questions or further needs at end of eval.
[2018-05-12] MEDS: ALPRAZolam 0.25 MG TAB PO PRN ×2 (12:14→23:25)
[2018-05-12] MEDS ORDERED: Polyethylene Glycol 3350 17 GM Packet PO SCH (12:15)
[2018-05-12] MEDS: Labetalol HCl 100 MG/20 ML VIAL SLOW IVP PRN (12:48)
[2018-05-12] MEDS: diphenhydrAMINE 50 MG/ML VIAL IVP PRN (12:49)
[2018-05-12] MEDS ORDERED: Magnesium Oxide 400 MG TAB PO SCH (17:00)
[2018-05-12] MEDS ORDERED: Carvedilol 6.25 MG TAB PO SCH (21:30)
--- NOTE | 2018-05-12 21:30 | PDOC.CTH ---
Cardiology Progress Note - Subjective No new overnight events. The BP is still fluctuating. She is tolerating the Coreg and the Cardura. She still has some anxiety but denies other symptoms. - Objective Vital Signs Temp Pulse Resp BP Pulse Ox 05/12/18 20:13 97.8 F 81 16 159/74 H 95 05/12/18 16:11 98.3 F 69 16 144/73 H 05/12/18 15:20 135/72 05/12/18 14:50 159/75 H 05/12/18 14:20 173/84 H 05/12/18 13:50 180/86 H 05/12/18 13:20 192/92 H 05/12/18 12:50 77 199/91 H 05/12/18 12:11 97.7 F 77 18 178/89 H 95 Weight 130 lb 11.2 oz 05/11/18 05/12/18 05/13/18 06:59 06:59 06:59 Intake Total 924 1200 Output Total 700 Balance 224 1200 - Physical Examination General/Neuro: alert & oriented x3 Neck: carotid US brisk Lungs: CTA Heart: PMI normal Abdomen: no HSM, NT/ND, soft - Labs Result Diagrams: 05/10/18 05:32 05/12/18 05:32 Troponin/CKMB CK-MB (CK-2) 2.0 ng/mL (0-6.6) 05/09/18 15:10 Troponin I Less than 0.010 ng/mL (< 0.028) 05/09/18 21:27 - Assessment/Plan 1. HTN:difficult to control. Continue to increase beta blockers. If she does not tolerate the beta-blockers then I will try to increase the Cardura. Hopefully we can manage the BP with only one medication. Some degree of anxiety seems to be a factor.
[2018-05-13 05:40] LABS: Anion Gap 12 mmol/L (10-20); BUN (Urea Nitrogen) 13 mg/dL (9.8-20.1); Calc. Creatinine Clearance 67 mL/min (70-130); Calcium 8.8 mg/dL (7.8-10.44); Carbon Dioxide 19 mmol/L (23-31); Chloride 94 mmol/L (98-107); Estimated GFR-MDRD 76; Glucose 89 mg/dL (80-115); Potassium 3.7 mmol/L (3.5-5.1); Sodium 121 mmol/L (136-145)
[2018-05-13] MEDS: Levothyroxine Sodium 112 MCG TAB PO SCH (05:40)
[2018-05-13 07:21] LABS: Sodium 130 mmol/L (136-145)
[2018-05-13] MEDS ORDERED: Carvedilol 6.25 MG TAB PO SCH (08:00)
[2018-05-13] MEDS: Doxazosin 2 MG TAB PO SCH (08:46)
[2018-05-13] MEDS: ALPRAZolam 0.25 MG TAB PO PRN (08:46)
[2018-05-13] MEDS: Docusate 100 MG CAP PO SCH (08:46)
[2018-05-13] MEDS ORDERED: Polyethylene Glycol 3350 17 GM Packet PO SCH (09:00)
--- NOTE | 2018-05-13 09:18 | PDOC.CTH ---
Cardiology Progress Note - Subjective The pt seen and examined. No overnight events. No cardiac complaints. Her BP last night were better. - Objective Vital Signs Temp Pulse Resp BP Pulse Ox 05/13/18 08:51 98.0 F 80 16 181/83 H 97 05/13/18 04:38 97.5 F L 71 16 142/67 H 94 L 05/13/18 00:27 82 16 142/77 H 05/12/18 23:24 77 16 176/81 H Weight 129 lb 11.2 oz 05/12/18 05/13/18 05/14/18 06:59 06:59 06:59 Intake Total 924 1930 Output Total 700 1350 Balance 224 580 - Physical Examination General/Neuro: alert & oriented x3 Neck: no JVD present Lungs: CTA Heart: RRR Abdomen: soft Extremities: other: (No edema) - Telemetry Telemetry Rhythm: SR - Labs Result Diagrams: 05/10/18 05:32 05/13/18 06:50 Troponin/CKMB CK-MB (CK-2) 2.0 ng/mL (0-6.6) 05/09/18 15:10 Troponin I Less than 0.010 ng/mL (< 0.028) 05/09/18 21:27 - Assessment/Plan 1. HTN urgency - better today with Coreg 6.25mg BID and Curdura 2mg qd. 2. Hyponatremia - slightly improving today. On Fluid restriction with 1200ml/ day. 3. COPD - stable with RA 4. Hypothyroidsm - managed by PCP 5. Anxiety - on Xanax MAR reviewed * If her VS stable this afternoon, she can be d/radha from cardiac standpoint. * The pt cont. checking and recording her VS at least BID and notify Dr Hickey' office ALFREDO. * The pt will f/u with Dr Hickey' office within 2-4 wks. Review of Systems - Review of Systems Constitutional: reports: no symptoms reported EENTM: reports: no symptoms reported Respiratory: reports: no symptoms reported Cardiac (ROS): reports: no symptoms reported ABD/GI: reports: no symptoms reported : reports: no symptoms reported Neurological: reports: anxiety
[2018-05-13 10:12] LABS: Bilirubin Negative (Negative); Blood, Urine Negative (Negative); Clarity CLEAR (Clear); Glucose, Urine (Dipstick) Negative (Negative); Leukocyte Negative (Negative); Nitrite Negative (Negative); Protein, Urine (Dipstick) Negative (Neg-Trace); Specific Gravity, Urine 1.009 (1.002-1.036)
[2018-05-13 10:30] LABS: Creatinine, Urine 45.07 mg/dL (47-110)
[2018-05-13 13:41] VITALS: BP 136/75; TEMP 98.7
--- NOTE | 2018-05-13 17:35 | DIS ---
DATE OF ADMISSION: 05/09/2018 DATE OF DISCHARGE: 05/13/2018 CONSULTANTS: Dr. Hickey of Cardiology. MEDICATIONS: Reconciled at discharge. NEW MEDICATIONS: 1. Carvedilol 6.25 mg p.o. b.i.d., prescription for 60 tablets. 2. Cardura 2 mg p.o. daily, prescription for 30 tablets. HOME MEDICATIONS TO CONTINUE: 1. Alprazolam 0.25 mg daily as needed. 2. Vitamin D3 daily. 3. Prempro 1 tablet daily. 4. Levothyroxine 112 mcg daily. 5. Systane eyedrops 3 times daily. 6. Spiriva 1 inhalation daily. FINAL DIAGNOSES: 1. Hypertensive urgency, resolved. 2. Anxiety. 3. Chronic obstructive pulmonary disease. 4. Hypothyroidism. 5. History of supraventricular tachycardia status post ablation. 6. Coronary artery disease. 7. Hyponatremia, stable consistent with SIADH. HISTORY OF PRESENT ILLNESS: Ms. Robles is a 67-year-old female with the above medical problems who presented to the emergency room after her blood pressure readings at home are over 200 systolic. Her initial blood pressure here was 227 systolic, and hospitalist called for admission. Because the patient has multiple adverse reactions to medication, she was started on low dose carvedilol while here with use of IV labetalol as needed. She tolerated this and was seen by her environmental protection specialist who started her on Cardura. The carvedilol has been increased and patient has tolerated this well with her blood pressures ranging over the past 24 hours from 142/67 to a high prior to her medications of 181/83. The patient does have underlying anxiety, which has been treated with as needed alprazolam. We discussed today that she generally has reactions to many medications, and she is not interested in medication management of this. She does report a history of counseling in the past, and is agreeable to schedule counseling in the future. She states that she feels anxious not knowing what she is able to do or not and what may make her blood pressure increase. She has also limited her activities due to problems with her hip. Because of this, I think it is a great idea to work with a counselor to help reduce the stress and open up other possibilities and activities to manage stress. The patient does have a mildly elevated TSH and may benefit from adjusting her levothyroxine, she desires this be done in the outpatient setting with Dr. Montero. Patient's sodium level while here has ranged from 130-132. Urine studies were done and this is consistent with an SIADH picture may be secondary to her thyroid to hypothyroidism. On the day of discharge, her initial sodium level at 5:00 a.m. was 121. Because this was drastically different than yesterday, it was repeated and the repeat is 130, consistent with her prior studies. Recommend that this will be followed up in the outpatient setting, in the next week or two and with any changes to her thyroid medicine. PHYSICAL EXAMINATION: VITAL SIGNS: On day of discharge, blood pressure 147/72, pulse 73, temperature 98, saturation is 97% on room air, respirations 16. GENERAL: Awake, alert, responsive, in no apparent distress, able to speak in regular sentences. LUNGS: Clear to auscultation bilateral. HEART: Normal S1, S2, regular rate and rhythm, no audible murmurs. ABDOMEN: Soft. Present bowel sounds. EXTREMITIES: No clubbing, cyanosis, or edema. LANG FINDINGS AND TEST RESULTS: 1. CBC; 7, 12.9, 37, 318. 2. Chemistry; 130, 3.7, 94, 19, 13, 0.76, 89 (sodium ranged 130-132). 3. TSH 5.25. 4. Total protein 8.6, albumin 4.7, total bilirubin 0.5, AST 19, ALT 12, alkaline phosphatase 44. 5. Urine osmolality is 254. Urine creatinine 45, urine sodium 45 and urinalysis today 1.009, otherwise negative. 6. Chest x-ray performed on 05/09/2018, chronic type, findings are stable. No active cardiopulmonary abnormalities. DIET: Heart healthy. ACTIVITIES: No limitations. Discussed with patient that it is okay to exert herself; however, she should not experience difficulty breathing, shortness of breath, chest pain, lightheadedness or dizziness. FOLLOWUP: 1. With Dr. Montero in the next week for evaluation of the TSH and thyroid medication, monitoring sodium. 2. Following up with a counselor for discussion of current anxious symptoms. 3. Follow up with Dr. Hickey in 2-4 weeks, check vital signs twice daily and notify Dr. Hickey of any concerns. CODE STATUS: FULL. Reviewed with patient this hospitalization, the importance of followup and the return for care precautions. She demonstrates understanding. Total time coordinating discharge is 35 minutes. SUSANNAH
== END 2018-05-13 15:09 | disposition home or self-care (01) | DRG 305 ==
LOC: ERS 14:46 → ERHOLD 17:59 → 2SW 22:40 → OBSVTOIN 05-11 15:37 → 2NO 05-11 19:24
PROVIDERS: ADMIT Internal Medicine; ATTEND Internal Medicine
DX: I16.0 Hypertensive urgency (principal); E22.2 Syndrome of inappropriate secretion of antidiuretic hormone; F41.9 Anxiety disorder, unspecified; J44.9 Chronic obstructive pulmonary disease, unspecified; E03.9 Hypothyroidism, unspecified; I25.10 Atherosclerotic heart disease of native coronary artery without angina pectoris; E78.5 Hyperlipidemia, unspecified; I48.0 Paroxysmal atrial fibrillation; R25.2 Cramp and spasm; Z88.8 Allergy status to other drugs, medicaments and biological substances; Z79.818 Long term (current) use of other agents affecting estrogen receptors and estrogen levels; Z79.899 Other long term (current) drug therapy
CPT/HCPCS: 36415; 71045; 80048; 80053; 81003; 82550; 82553; 82570; 83690; 83880; 83935; 84300; 84443; 84484; 85025; 93005; 96361; 96374; A4216; J1200; J1650; J2060; J7644

== ENCOUNTER 2018-07-05 09:36 | Outpatient (CLI) | payer MEDICARE, OTHER ==
--- NOTE | 2018-07-05 11:27 | RAD ---
CHEST PA AND LATERAL: HISTORY: A 68-year-old female with a history of dyspnea. COMPARISON: 05/09/2018 FINDINGS: Minimal increased linear and interstitial markings, including some changes in the apices and mild richi pical pleural thickening. The appearance appears to be chronic and stable. No confluent pneumonia, overt edema, or pleural effusion. IMPRESSION: Overall stable appearing chronic changes, including the apices and lower lung zones. Atherosclerosis of the aorta. POS: C
== END 2018-07-05 09:37 | disposition home or self-care (01) ==
LOC: RAD 09:36
PROVIDERS: ATTEND Internal Medicine Critical Care Medicine
DX: R06.00 Dyspnea, unspecified (principal); I70.0 Atherosclerosis of aorta
CPT/HCPCS: 71046

== ENCOUNTER 2018-08-25 11:12 | Outpatient (CLI) | payer MEDICARE, OTHER ==
--- NOTE | 2018-08-25 11:27 | RAD ---
CHEST TWO VIEWS: History: Dyspnea. Comparison: 07-05-18 FINDINGS: Cardiac silhouette and pulmonary vasculature are unremarkable. Mediastinum is midline with aortic shaquille cification. Lungs remain hyperinflated. Parenchymal scarring at the right apex, under the right clavicle on the frontal view, is stable on ex ams dating back to 2010. IMPRESSION: 1. Atherosclerosis. 2. Chronic type findings are stable. POS: KALEIGH
== END 2018-08-25 11:13 | disposition home or self-care (01) ==
LOC: RAD 11:12
PROVIDERS: ATTEND Internal Medicine Critical Care Medicine
DX: R06.00 Dyspnea, unspecified (principal); I70.0 Atherosclerosis of aorta
CPT/HCPCS: 71046

== ENCOUNTER 2018-11-28 11:02 | Outpatient (CLI) | payer MEDICARE, OTHER | END 2018-11-28 11:03 | disposition home or self-care (01) | LOC: BICMAMMO 11:02 | PROVIDERS: ATTEND Family Medicine | DX: Z12.31 Encounter for screening mammogram for malignant neoplasm of breast (principal); Z80.3 Family history of malignant neoplasm of breast | CPT/HCPCS: 77063; 77067 ==

== ENCOUNTER 2019-07-05 10:09 | Outpatient (CLI) | payer MEDICARE, OTHER ==
--- NOTE | 2019-07-05 10:37 | RAD ---
EXAM: Chest 2 views: HISTORY: Dyspnea COMPARISON: 08/25/2018 FINDINGS: Stable parenchymal changes in the right upper lobe with some associated volume loss. Minimal hyperinflation Heart size:Borderline enlarged. Lungs:Clear of acute process. Atherosclerotic changes of the aorta. No confluent pneumonia, overt edema, pleural effusion, pneumothorax, or other significant acute proce ss. IMPRESSION: Stable chest. Atherosclerosis of the aorta. No acute intrathoracic disease.
== END 2019-07-05 10:10 | disposition home or self-care (01) ==
LOC: RAD 10:09
PROVIDERS: ATTEND Internal Medicine Critical Care Medicine
DX: R06.00 Dyspnea, unspecified (principal); I70.0 Atherosclerosis of aorta
CPT/HCPCS: 71046

== ENCOUNTER 2020-06-12 10:49 | Outpatient (CLI) | payer MEDICARE, OTHER ==
--- NOTE | 2020-06-12 12:13 | MRI ---
LUMBAR SPINE MRI WITHOUT IV CONTRAST: Date: 06/12/2020 HISTORY: Right-sided sciatica. Low back pain. FINDINGS: Multilevel degenerative disc disease and ligament and facet hypertrophic changes. Conus medullaris re gions appear unremarkable. No evidence for significant abnormal acute marrow edema. T12-L1: Unremarkable. L1-L2: Unremarkable. L2-L3: Moderate left posterior lateral recess narrowing from prominent facet arthrosis. L3-L4: Mild Grade I anterolisthesis with disc osteophytosis and dorsolateral and lateral recess mild stenosis. L4-L5: Disc osteophytosis with mild to moderate central canal and lateral recess stenosis changes, p rimarily ventrally, with mild to moderate bilateral foraminal stenosis. L5-S1: Disc bulging slightly more prominent in the left central and paracentral regions with mild la teral recess stenosis and moderate to severe left foraminal stenosis. IMPRESSION: Multilevel variable severity canal, lateral recess, and foraminal stenosis changes as above, most mar ked at L4-L5. POS: RRE
== END 2020-06-12 10:50 | disposition home or self-care (01) ==
LOC: TBSIIMAG 10:49
PROVIDERS: ATTEND Orthopaedic Surgery
DX: M54.31 Sciatica, right side (principal); M48.061 Spinal stenosis, lumbar region without neurogenic claudication
CPT/HCPCS: 72148

== ENCOUNTER 2020-06-14 11:37 | Outpatient (CLI) | payer MEDICARE, OTHER ==
--- NOTE | 2020-06-14 12:33 | MMO ---
Bilateral MAMMO Bilat Screen [facility]. CLINICAL HISTORY: Patient is 70 years old and is seen for screening. The patient has no family history of breast cancer. The patient has no personal history of cancer. VIEWS: The views performed were: bilateral craniocaudal with tomosynthesis and bilateral mediolateral oblique with tomosynthesis. FILMS COMPARED: The present examination has been compared to prior imaging studies performed at [facility] on 11/07/2015, 11/10/2016, 11/24/2017 and 11/28/2018. This study has been interpreted with the assistance of computer-aided detection. MAMMOGRAM FINDINGS: There are scattered fibroglandular densities. There are no suspicious masses, suspicious calcifications, or new areas of architectural distortion. IMPRESSION: THERE IS NO MAMMOGRAPHIC EVIDENCE OF MALIGNANCY. A ROUTINE FOLLOW-UP MAMMOGRAM IN 1 YEAR IS RECOMMENDED. THE RESULTS OF THIS EXAM WERE SENT TO THE PATIENT. ACR BI-RADS Category 1 - Negative MAMMOGRAPHY NOTE: 1. A negative mammogram report should not delay a biopsy if a dominant of clinically suspicious mass is present. 2. Approximately 10% to 15% of breast cancers are not detected by mammography. 3. Adenosis and dense breasts may obscure an underlying neoplasm. Reported by: STACEY ORDONEZ MD Electonically Signed: [id number]
== END 2020-06-14 11:38 | disposition home or self-care (01) ==
LOC: BICMAMMO 11:37
PROVIDERS: ATTEND Family Medicine
DX: Z12.31 Encounter for screening mammogram for malignant neoplasm of breast (principal)
CPT/HCPCS: 77063; 77067

== ENCOUNTER 2020-07-11 08:03 | Outpatient (CLI) | payer MEDICARE, OTHER ==
--- NOTE | 2020-07-11 11:19 | CT ---
CT OF THE THORAX WITHOUT IV CONTRAST: Date: 07/11/2020 INDICATION: History of a lung nodule. COMPARISON: Chest radiograph dated 07/09/2020 from [facility] in [place], [place]. FINDINGS: Corresponding to the right apical mass identified on comparison radiograph is a spiculated soft tissu e density lesion in the anterior segment of the right upper lobe measuring 6.4 x 4.5 cm. This contact s the anterior pleural space in the right lung apex and is contiguous with the upper and medial aspec t of the mediastinum. There is some reticulation of the soft tissues of the mediastinum consistent wi th mediastinal wall invasion. This mass was present on a 2009 examination from [facility] and has significantly increased in size from this comparison exam. There is diffuse COPD change. Pleural parenchymal scarring involving the left lung apex is similar appearing. No additional suspic ious pulmonary nodule is evident. No pleural effusion is demonstrated. No definite enlarged mediastin al lymph nodes are evident. There are coronary artery thoracic aortic calcifications. Adrenal glands are normal appearing. There is diffuse osteopenia. There is scattered degenerative change. IMPRESSION: 1. Enlarging right lung apical mass with involvement of the upper mediastinum and upper anterior chica st wall. 2. Stable emphysema. CODE T. POS: BH
== END 2020-07-11 08:04 | disposition home or self-care (01) ==
LOC: CT 08:03
PROVIDERS: ATTEND Internal Medicine Critical Care Medicine
DX: R91.1 Solitary pulmonary nodule (principal); J98.59 Other diseases of mediastinum, not elsewhere classified; J43.9 Emphysema, unspecified
CPT/HCPCS: 71250

== ENCOUNTER 2020-07-18 11:16 | Outpatient (CLI) | payer MEDICARE, OTHER ==
--- NOTE | 2020-07-18 13:42 | PET ---
EXAM: PET/CT HISTORY: Solitary pulmonary nodule TECHNIQUE: PET scanning with CT attenuation correction was performed from the base of the brain to the proximal thighs following the intravenous administration of 12.7 millicuries [id number]. COMPARISON: CT the thorax dated July 11, 2020 FINDINGS: Biodistribution:The biodistribution for the exam appears acceptable. Head and neck: There is appropriate background activity within the brain. There is a hypermetabolic f ocus within the right palatine tonsil with a peak SUV activity of 5.77 and mean activity of 5.23. Mild increased metabolic uptake is seen involving the left palatine tonsil. No additional hypermetabo lic focus is seen within the head neck region. Thorax: The large pulmonary mass involving the right upper lobe contacting the anterior superior ches t wall and superior lateral aspect of the right mediastinum demonstrates a peak SUV activity of 12.16 and a mean activity in 0.62. No hypermetabolic lymphadenopathy is evident within the mediastinu m, hilar or axillary regions. No hypermetabolic supraclavicular lymphadenopathy is evident. No additional hypermetabolic pulmonary nodule pleural effusion is demonstrated. There is scattered emphy sema. Abdomen and pelvis: There is expected background activity within the GI and systems. No hypermetab olic mass, lymphadenopathy or ascites is present. Osseous structures and skin: No hypermetabolic skin or osseous lesion is identified. IMPRESSION: Abnormal PET/CT 1. The large right upper lobe lung mass demonstrates prominent hypermetabolic uptake is highly suspic ious for malignancy. 2. No evidence to suggest hypermetabolic lymphadenopathy or distant metastatic disease to the abdomen and pelvis, skin and osseous structures. 3. Focus of hypermetabolic uptake involving the right palatine tonsils with mild increase uptake invo lving the left palatine tonsil. Findings may reflect sequela of mild tonsillitis. Malignancy cannot be entirely excluded from the right palatine tonsil. Recommend direct visualization.
== END 2020-07-18 11:17 | disposition home or self-care (01) ==
LOC: PET 11:16
PROVIDERS: ATTEND Internal Medicine Critical Care Medicine
DX: R91.1 Solitary pulmonary nodule (principal); R91.8 Other nonspecific abnormal finding of lung field
CPT/HCPCS: 78815; A9552

== ENCOUNTER 2020-07-29 06:41 | Outpatient (CLI) | payer MEDICARE, OTHER ==
--- NOTE | 2020-07-30 14:58 | EKG ---
Test Reason : PREOP Blood Pressure : / mmHG Vent. Rate : 084 BPM Atrial Rate : 084 BPM P-R Int : 138 ms QRS Dur : 088 ms QT Int : 366 ms P-R-T Axes : 073 077 057 degrees QTc Int : 432 ms Normal sinus rhythm with sinus arrhythmia Normal ECG No previous ECGs available Confirmed by EVI NOE (2) on 07/30/2020 2:58:38 PM Referred By: VICTORIANO Confirmed By:EVI NOE
== END 2020-07-29 06:42 | disposition home or self-care (01) ==
LOC: LABBT 06:41
PROVIDERS: ATTEND Thoracic Surgery (Cardiothoracic Vascular Surgery)
DX: Z01.818 Encounter for other preprocedural examination (principal); R91.8 Other nonspecific abnormal finding of lung field; Z20.828 Contact with and (suspected) exposure to other viral communicable diseases
CPT/HCPCS: 80048; 85027; 86850; 86900; 86901; 86920; 93005; U0003; 87635; 93010

== ENCOUNTER 2020-07-29 15:00 | Inpatient (IN) | payer MEDICARE, OTHER ==
[2020-07-29 18:28] LABS: Hemoglobin 13.1 g/dL (12.0-16.0); Mean Corpuscular HGB CONC 33.2 g/dL (32.0-36.0); Mean Corpuscular Hemoglobin 31.1 pg (27.0-31.0); Mean Corpuscular Volume 93.7 fL (78.0-98.0); Mean Platelet Volume 7.8 fL (7.4-10.4); Platelet Count 332 thou/uL (130-400); Red Blood Cell (RBC) Count 4.21 mill/uL (4.20-5.40); White Blood Cell (WBC) Count 8.7 thou/uL (4.8-10.8)
[2020-07-29 19:02] LABS: Anion Gap 14 mmol/L (10-20); BUN (Urea Nitrogen) 19 mg/dL (9.8-20.1); Calc. Creatinine Clearance 0 mL/min (70-130); Calcium 9.2 mg/dL (7.8-10.44); Carbon Dioxide 25 mmol/L (23-31); Chloride 101 mmol/L (98-107); Estimated GFR-MDRD 61; Glucose 125 mg/dL (80-115); Potassium 3.8 mmol/L (3.5-5.1); Sodium 136 mmol/L (136-145)
[2020-07-30 11:35] LABS: SARS-CoV-2 MS2 Positive; SARS-CoV-2 N Gene Negative; SARS-CoV-2 S Gene Negative; SARS-CoV-2 by NAA Not Detected (NotDetected); SARS-CoV-2 orf1ab Negative
[2020-08-01] MEDS ORDERED: Fentanyl 250 MCG/5 ML VIAL ONE (06:40)
[2020-08-01] MEDS ORDERED: Midazolam HCl 2 mg/2 ml Vial ONE ×2 (06:41→06:53)
[2020-08-01] MEDS ORDERED: Fentanyl 100 MCG/2 ML VIAL ONE ×4 (06:53→14:12)
[2020-08-01] MEDS ORDERED: HYDROcodone/Acetaminophen 5/325 mg Tablet PO PRN ×2 (08:00)
[2020-08-01] MEDS ORDERED: Naloxone HCl 0.4 mg/ml Vial IV PRN (08:00)
[2020-08-01] MEDS ORDERED: Promethazine HCl 25 MG/ML VIAL IM PRN (08:00)
[2020-08-01] MEDS ORDERED: Bupivacaine 0.25% 10 ML VIAL EPIDURAL PRN (08:00)
[2020-08-01] MEDS ORDERED: Promethazine HCl 25 MG SUPP PR PRN (08:00)
[2020-08-01] MEDS ORDERED: Zolpidem Tartrate 5 MG TAB PO PRN (08:00)
[2020-08-01] MEDS ORDERED: diphenhydrAMINE 50 MG/ML VIAL IM PRN (08:00)
[2020-08-01] MEDS ORDERED: Hydrocerin (Eucerin) Cream 120 gm Jar TOP PRN (08:00)
[2020-08-01] MEDS ORDERED: Naloxone HCl 0.4 mg/ml Vial IVP PRN (08:00)
[2020-08-01] MEDS ORDERED: Mineral Oil Sterile 10ML 10 ML UDCUP ONE (08:22)
[2020-08-01] MEDS ORDERED: Bupivacaine/Epinephrine 0.25% 30 ML VIAL ONE (09:18)
[2020-08-01] MEDS ORDERED: Glycopyrrolate 0.2 MG/ML 5 ML SYRINGE ONE (10:54)
[2020-08-01] MEDS ORDERED: PROPOFOL 200 MG/20 ML VIAL ONE (10:54)
[2020-08-01] MEDS ORDERED: Ondansetron PF 4 MG/2 ML Vial ONE (10:54)
[2020-08-01] MEDS ORDERED: EPHEDRINE 25 MG/5 ML SYRINGE ONE (10:54)
[2020-08-01] MEDS ORDERED: Rocuronium Bromide 10 MG/ML (10ML VIAL) ONE (10:54)
[2020-08-01] MEDS ORDERED: Lidocaine 1.5% w/Epi 1:200K 30 ML VIAL (Epid Use) ONE (10:54)
[2020-08-01] MEDS ORDERED: PHENYLEPHRINE-NS 100 MCG/ML 10 ML SYRINGE ONE (10:54)
--- NOTE | 2020-08-01 11:21 | RAD ---
EXAM: Single view of the chest HISTORY: Status post thoracotomy COMPARISON: 07/09/2020 FINDINGS: Single view of the chest shows a normal sized cardiomediastinal silhouette. 2 right-sided chest tubes are seen. There is a small right apical pneumothorax. Volume loss in the right thorax is from recent lobectomy. No pleural effusion is seen. No acute osseous abnormality. IMPRESSION: Status post right thoracotomy and a small right-sided pneumothorax
[2020-08-01] MEDS ORDERED: Nitroglycerin 50 MG/250 ML BOT 250 ML IVPB PRN (12:37)
[2020-08-01] MEDS ORDERED: Phenylephrine 10 MG/NS 250 ML 250 ML IVPB PRN (12:37)
[2020-08-01] MEDS ORDERED: Ondansetron PF 4 MG/2 ML Vial IVP PRN (12:37)
[2020-08-01] MEDS ORDERED: NS IV SCH (13:00)
[2020-08-01] MEDS ORDERED: PHENYLEPHRINE IV SCH (13:00)
[2020-08-01] MEDS ORDERED: CEFAZOLIN 2 GM in Premix Bag 1 BAG IVPB SCH (14:00)
[2020-08-01] MEDS: Sodium Chloride 0.9% 1,000 ML IV SCH (16:00)
[2020-08-01] MEDS: Ketorolac Tromethamine 30 MG/ML VIAL IVP SCH ×3 (16:06→23:13)
[2020-08-01] MEDS: CEFAZOLIN 2 GM in Premix Bag 1 BAG IVPB SCH ×2 (16:07→23:14)
--- NOTE | 2020-08-01 17:51 | PRG ---
DATE OF SERVICE: 08/01/2020 SUBJECTIVE: Ivette Robles is a wonderful, pleasant 70-year-old female, I followed for many years. One point in time she had pulmonary nodule in her right upper lobe that we followed, that turned up by CT scanning to be a linear scar. This year, it maybe in retrospect looking back to last year she had a change at her apex of her chest x-ray, so we did a chest CT. This showed density apically and medially that I felt was likely to be malignant. PET imaging suggested it was malignant. It has been resected today. PAST MEDICAL HISTORY: Remarkable for, 1. Hypertension. 2. History of chronic obstructive pulmonary disease. Recent FEV1 suggested that she would be an acceptable candidate for surgery. [place] and was up significant altitude and was carrying luggage. She was actually up there delivering a rescue dog to a friend. She had no trouble at altitude and denies dyspnea on exertion. She has only been on Spiriva as an outpatient. ADDITIONAL PAST MEDICAL HISTORY: 1. Remarkable for hypothyroidism, diverticulosis, SVT ablated x2 in the past and history of coronary artery disease, followed by Dr. Hickey, did not require any intervention. 2. History of carpal tunnel surgery. 3. History of shoulder surgery. 4. History of Shine neuroma surgery. ALLERGIES: SHE REPORTS ALLERGIES TO IODINE. SHE DOES NOT LIKE PREDNISONE. SHE DOES NOT TOLERATE FLU VACCINE. SHE DOES NOT LIKE AMBIEN. FAMILY HISTORY: Positive for vascular disease. SOCIAL HISTORY: She has not smoked since the mid 90s. She drinks wine in the evening. REVIEW OF SYSTEMS: Ten points otherwise negative. PHYSICAL EXAMINATION: VITAL SIGNS: She is afebrile. Heart rate is 82, respiratory rate is 18, oximetry is 98% on room air, blood pressure 157/86. Currently, she is in a sinus rhythm. Oximetry is 99% on 2 L. HEENT: Pupils are equal. Sclerae are anicteric. NECK: Supple. LUNGS: Clear with equal breath sounds. HEART: Regular rhythm. ABDOMEN: Soft. EXTREMITIES: Without clubbing, cyanosis, or edema. IMPRESSION: Status post lobectomy for lesion that was PET avid and highly suggestive of malignancy. Frozen section suggest non-small cell lung cancer with clear margins. We will follow the other physicians caring for her. This is a 50 min consult with greater than 50% of the time spent on the unit with coordination of care. Job ID: [id number] SUSANNAH
[2020-08-01] MEDS: Enoxaparin Sodium 30 MG/0.3 ML SYRINGE SC SCH (20:14)
[2020-08-01] MEDS: traMADol HCl 50 MG TAB PO PRN (20:19)
[2020-08-01] MEDS: fentaNYL Citrate/PF 500 MCG, Bupivacaine 10 ML in Sodium Chloride 0.9% 80 ML EPIDURAL SCH (22:53)
[2020-08-01] MEDS: diphenhydrAMINE 50 MG/ML VIAL IVP PRN (23:14)
[2020-08-02 04:55] LABS: #Lymphocytes 1.1 thou/uL (1.20-3.40); #Monocytes 0.8 thou/uL (0.11-0.59); #Neutrophils 10.2 thou/uL (1.40-6.50); %Basophils 0.3 % (0.0-1.0); %Eosinophils 0.1 % (0.0-10.0); %Lymphocytes 9.4 % (21.0-51.0); %Monocytes 6.2 % (0.0-10.0); %Neutrophils 84.1 % (42.0-75.0); Hemoglobin 10.3 g/dL (12.0-16.0); Mean Corpuscular HGB CONC 31.7 g/dL (32.0-36.0); Mean Corpuscular Hemoglobin 30.3 pg (27.0-31.0); Mean Corpuscular Volume 95.4 fL (78.0-98.0); Mean Platelet Volume 8.4 fL (7.4-10.4); Platelet Count 246 thou/uL (130-400); Red Blood Cell (RBC) Count 3.41 mill/uL (4.20-5.40); White Blood Cell (WBC) Count 12.2 thou/uL (4.8-10.8)
[2020-08-02 05:05] LABS: Anion Gap 14 mmol/L (10-20); BUN (Urea Nitrogen) 14 mg/dL (9.8-20.1); Calc. Creatinine Clearance 70 mL/min (70-130); Calcium 7.5 mg/dL (7.8-10.44); Carbon Dioxide 20 mmol/L (23-31); Chloride 104 mmol/L (98-107); Estimated GFR-MDRD 81; Glucose 89 mg/dL (80-115); Potassium 4.1 mmol/L (3.5-5.1); Sodium 134 mmol/L (136-145)
[2020-08-02] MEDS: diphenhydrAMINE 50 MG/ML VIAL IVP PRN (05:39)
[2020-08-02] MEDS: Ketorolac Tromethamine 30 MG/ML VIAL IVP SCH ×4 (05:39→23:16)
[2020-08-02] MEDS: Levothyroxine Sodium 112 MCG TAB PO SCH (05:40)
[2020-08-02] MEDS: CEFAZOLIN 2 GM in Premix Bag 1 BAG IVPB SCH (08:05)
[2020-08-02] MEDS: Sodium Chloride 0.9% 1,000 ML IV SCH (08:07)
[2020-08-02] MEDS ORDERED: Levothyroxine Sodium 112 MCG TAB PO SCH (08:45)
--- NOTE | 2020-08-02 08:45 | RAD ---
PORTABLE CHEST: Date: 08/02/2020 HISTORY: Post thoracotomy. COMPARISON: 08/01/2020. FINDINGS: Two right-sided chest tubes are unchanged in position. There continues to be a small right pneumothor ax best seen in the apical region. Left lung remains clear and unchanged. IMPRESSION: No significant interval change. POS: OFF
[2020-08-02] MEDS: Acetaminophen 500 MG TAB PO PRN ×3 (09:39→20:39)
[2020-08-02] MEDS: diphenhydrAMINE 25 MG CAP PO PRN ×3 (09:44→20:50)
[2020-08-02] MEDS: ALPRAZolam 0.25 MG TAB PO SCH ×4 (10:08→21:21)
[2020-08-02] MEDS: fentaNYL Citrate/PF 500 MCG, Bupivacaine 10 ML in Sodium Chloride 0.9% 80 ML EPIDURAL SCH (11:38)
--- NOTE | 2020-08-02 11:57 | PRG ---
DATE OF SERVICE: 08/02/2020 SUBJECTIVE: Ms. Robles is doing well. She has no air leak. OBJECTIVE: VITAL SIGNS: Blood pressure , heart rates in the 80s. She is in sinus rhythm. Respiratory rates in the teens. LUNGS: Remarkable for breath sounds. HEART: Regular rhythm. ABDOMEN: Soft. LABORATORY DATA: White count 12.2, hemoglobin 10.3, and platelets 246. Sodium 134, potassium 4.1, chloride 104, bicarb 20, BUN 14, and creatinine 0.71. IMPRESSION: 1. Status post lobectomy for wyd-iukep-gqsy lung cancer, clinically stable. Awaiting pathology. 2. Chronic obstructive pulmonary disease, clinically stable. 3. Anxiety. She takes half of a 0.25 mg Xanax at home, so we will change this order. Job ID: [id number]
[2020-08-02] MEDS: Enoxaparin Sodium 30 MG/0.3 ML SYRINGE SC SCH (21:21)
[2020-08-03] MEDS: Ondansetron PF 4 MG/2 ML Vial IVP PRN ×2 (04:13→19:42)
[2020-08-03] MEDS: fentaNYL Citrate/PF 500 MCG, Bupivacaine 10 ML in Sodium Chloride 0.9% 80 ML EPIDURAL SCH ×2 (04:22→21:20)
[2020-08-03] MEDS: Ketorolac Tromethamine 30 MG/ML VIAL IVP SCH (05:19)
[2020-08-03] MEDS: Levothyroxine Sodium 112 MCG TAB PO SCH (05:25)
--- NOTE | 2020-08-03 08:56 | RAD ---
XR Chest 1 View Portable History: Thoracotomy Comparison: Radiograph prior day Findings: Right-sided thoracostomy tubes are similar. Mild rightward mediastinal shift with tenting o f the right hemidiaphragm from volume loss. No acute osseous abnormality. Mediastinal drain is similar. Small right-sided pneumothorax is slightly decreased in size. Impression: Decreasing small right apical pneumothorax.
[2020-08-03] MEDS: ALPRAZolam 0.25 MG TAB PO SCH ×3 (09:23→19:41)
--- NOTE | 2020-08-03 13:11 | PRG ---
DATE OF SERVICE: 08/03/2020 SUBJECTIVE: The patient is doing fairly well. Her Pleur-evac was placed on water seal today. She says she is breathing okay. OBJECTIVE: VITAL SIGNS: Temperature 98.1, pulse 81, respirations 18, O2 saturation 97% on room air, and blood pressure 102/53. HEENT: Unremarkable. NECK: No adenopathy or JVD. LUNGS: Clear anteriorly. She has no air leak. ABDOMEN: Soft. EXTREMITIES: No edema. LABORATORY DATA: No labs were obtained today. ASSESSMENT: Status post thoracotomy with lobectomy for eyy-ycawq-fidi lung cancer. Pathology pending. PLAN: Continue current care. Dr. Grossman will recheck her on Wednesday. Job ID: [id number]
[2020-08-03] MEDS: Acetaminophen 500 MG TAB PO PRN (15:33)
[2020-08-03] MEDS: Enoxaparin Sodium 30 MG/0.3 ML SYRINGE SC SCH (19:41)
[2020-08-03] MEDS: traMADol HCl 50 MG TAB PO PRN (20:08)
[2020-08-04] MEDS: Ondansetron PF 4 MG/2 ML Vial IVP PRN ×2 (01:53→15:35)
[2020-08-04] MEDS: diphenhydrAMINE 25 MG CAP PO PRN (01:59)
[2020-08-04] MEDS: Levothyroxine Sodium 112 MCG TAB PO SCH (07:44)
--- NOTE | 2020-08-04 08:04 | OP ---
DATE OF PROCEDURE: 08/01/2020 PREOPERATIVE DIAGNOSIS: Right upper lobe mass. POSTOPERATIVE DIAGNOSIS: Non-small cell carcinoma with negative margins. PROCEDURE PERFORMED: Right upper lobectomy. ANESTHESIA: General. ESTIMATED BLOOD LOSS: Less than 100. DESCRIPTION OF PROCEDURE: After adequate anesthesia had been obtained, the patient was placed in the left lateral decubitus position and a right posterior lateral muscle sparing thoracotomy was carried out. Fifth intercostal space was entered. Fissures were all incomplete. There were some adhesions between the lung and the chest wall and between the upper lobe and adjacent to the superior vena cava, but these were for the most part filmy adhesions with no obvious spread. After taking these down, pulmonary artery branches x2 to the upper lobe were taken down with a vascular stapler. The pulmonary vein to the right upper lobe was similarly treated after the right upper lobe bronchus had been treated with a green staple load, and air entry into the lower and middle lobe was confirmed prior to firing the stapler. Multiple green loads were used to divide the major and minor fissure. Following this, the specimen was removed and the mediastinum was inspected, and there was no adenopathy adjacent to the azygos vein as this had been removed with the specimen. There was no supra azygos level II lymph nodes visible, just palpable trachea and visible esophagus. A pleural tent was created at the top to assist with residual space, and the inferior pulmonary ligament was taken down with the Bovie. Following this, the two chest tubes were placed and ribs were reapproximated with double-stranded catgut suture. Muscle layers were loosely replaced and secured, and the subcutaneous tissue and skin were closed in layers. The patient was to be taken to the recovery room. Job ID: [id number] [facility]
--- NOTE | 2020-08-04 08:07 | RAD ---
XR Chest 1 View Portable History: Thoracotomy Comparison: Radiograph prior day Findings: Right-sided thoracostomy tubes are similar. Small right apical pneumothorax with pleural li ne at the level of the posterior second/third posterior rib interspace. Small effusions. Background lung hyperinflation. Sutures noted along the hilum. Impression: Continued slow interval size decrease right pneumothorax.
[2020-08-04] MEDS: ALPRAZolam 0.25 MG TAB PO SCH ×3 (08:22→20:33)
[2020-08-04] MEDS: traMADol HCl 50 MG TAB PO PRN ×2 (09:47→15:30)
[2020-08-04] MEDS: fentaNYL Citrate/PF 500 MCG, Bupivacaine 10 ML in Sodium Chloride 0.9% 80 ML EPIDURAL SCH (15:31)
[2020-08-04] MEDS: Enoxaparin Sodium 30 MG/0.3 ML SYRINGE SC SCH (20:33)
[2020-08-05] MEDS: Levothyroxine Sodium 112 MCG TAB PO SCH (05:37)
[2020-08-05] MEDS: Ondansetron PF 4 MG/2 ML Vial IVP PRN ×2 (07:04→21:30)
[2020-08-05] MEDS: traMADol HCl 50 MG TAB PO PRN (07:04)
--- NOTE | 2020-08-05 07:57 | RAD ---
EXAM: Single view of the chest HISTORY: Right pneumothorax COMPARISON: 08/04/2020 FINDINGS: Single view of the chest shows an enlarged but stable cardiomediastinal silhouette. Athero sclerotic calcifications are seen in the aorta. There are 2 right-sided chest tubes. There is a stable small right apical pneumothorax. There is no evidence of consolidation, mass, or pleural effu miles. No acute osseous abnormality. IMPRESSION: Stable exam
[2020-08-05] MEDS: ALPRAZolam 0.25 MG TAB PO SCH ×3 (08:55→21:02)
[2020-08-05] MEDS: fentaNYL Citrate/PF 500 MCG, Bupivacaine 10 ML in Sodium Chloride 0.9% 80 ML EPIDURAL SCH (08:55)
[2020-08-05] MEDS: Acetaminophen 500 MG TAB PO PRN (10:50)
[2020-08-05 14:41] VITALS: BMI 22.6
[2020-08-05] MEDS: Enoxaparin Sodium 30 MG/0.3 ML SYRINGE SC SCH (21:02)
[2020-08-05] MEDS: diphenhydrAMINE 25 MG CAP PO PRN (21:02)
[2020-08-06] MEDS: fentaNYL Citrate/PF 500 MCG, Bupivacaine 10 ML in Sodium Chloride 0.9% 80 ML EPIDURAL SCH ×2 (01:40→19:37)
[2020-08-06] MEDS: Levothyroxine Sodium 112 MCG TAB PO SCH (05:06)
--- NOTE | 2020-08-06 07:42 | RAD ---
EXAM: XR Chest 1 View Portable PROVIDED CLINICAL HISTORY: Status post thoracotomy COMPARISON: 08/05/2020 FINDINGS: The cardiac silhouette appears enlarged. Vascular calcification involves the aortic arch. Right-sided chest tubes are redemonstrated in similar position. Persistent right pneumothorax. No focal consolidation, left pneumothorax or pleural fluid evident. IMPRESSION: Significant interval change with respect to the prior examination is not apparent.
[2020-08-06] MEDS: ALPRAZolam 0.25 MG TAB PO SCH ×3 (07:48→20:03)
[2020-08-06] MEDS: Senokot 8.6 MG TAB PO SCH ×2 (07:48→20:03)
[2020-08-06] MEDS: Polyethylene Glycol 3350 17 GM Packet PO SCH (07:48)
[2020-08-06] MEDS: diphenhydrAMINE 25 MG CAP PO PRN (17:14)
--- NOTE | 2020-08-06 18:48 | PRG ---
DATE OF SERVICE: 08/06/2020 SUBJECTIVE: She has done reasonably well. Chest tubes to water seal. OBJECTIVE: VITAL SIGNS: She is afebrile. Heart rate is 84, respiratory rate 12, oximetry is 94% on 2 L, blood pressure 135/73. LUNGS: Clear. HEART: Regular rhythm. ABDOMEN: Soft. IMPRESSION: 1. Chronic obstructive pulmonary disease, stable. 2. Status post resection of a T2 N0 non-small cell lung cancer. She will be referred to Oncology once she has recovered from this and overall, she appears to be stable. Job ID: [id number] [facility]
[2020-08-06] MEDS: Enoxaparin Sodium 30 MG/0.3 ML SYRINGE SC SCH (20:03)
[2020-08-07] MEDS: Levothyroxine Sodium 112 MCG TAB PO SCH (05:25)
--- NOTE | 2020-08-07 06:46 | PRG ---
DATE OF SERVICE: 08/07/2020 The patient is now postoperative day #5 following a right upper lobectomy. Pathology has returned a poorly differentiated adenocarcinoma with clear margins and multiple negative nodes. She has no new complaints today. Her lungs are clear to auscultation. Her Pleur-evac has been changed with reported output of 230 mL of thin yellow fluid overnight. She does have marked fluctuations in her chest tube level and does have some air leak with coughing, although not with spontaneous ventilation. Suction was briefly connected and a small amount of air evacuated from the chest. At this time, we will leave the chest tubes on water-seal and wait another day to see if her small air leak subsides. Job ID: [id number]
--- NOTE | 2020-08-07 08:05 | RAD ---
Portable frontal chest radiograph: 08/07/2020 COMPARISON: 08/06/2020 HISTORY: Evaluate chest following thoracotomy FINDINGS: There are 2 stable right-sided chest tubes. There is mild apical pleural thickening on the right. No discrete pneumothorax is evident on either side. Heart and mediastinal contours are stable. There is atherosclerotic calcification of the aortic arch. Mild linear density in the perihilar regions and both lung bases with no focal consolidation or alveolar edema. IMPRESSION: Stable appearance of the chest as detailed above.
[2020-08-07] MEDS: ALPRAZolam 0.25 MG TAB PO SCH ×3 (08:08→20:06)
[2020-08-07] MEDS: Polyethylene Glycol 3350 17 GM Packet PO SCH (08:08)
[2020-08-07] MEDS: Senokot 8.6 MG TAB PO SCH ×2 (08:08→20:06)
[2020-08-07] MEDS: Bupivacaine 10 ML in Sodium Chloride 0.9% 90 ML EPIDURAL SCH (12:30)
[2020-08-07] MEDS: traMADol HCl 50 MG TAB PO PRN (17:42)
[2020-08-07] MEDS: Acetaminophen 500 MG TAB PO PRN (20:05)
[2020-08-07] MEDS: Enoxaparin Sodium 30 MG/0.3 ML SYRINGE SC SCH (20:06)
[2020-08-07] MEDS: diphenhydrAMINE 25 MG CAP PO PRN (20:06)
[2020-08-08] MEDS: traMADol HCl 50 MG TAB PO PRN (02:16)
[2020-08-08] MEDS: Bupivacaine 10 ML in Sodium Chloride 0.9% 90 ML EPIDURAL SCH (05:15)
[2020-08-08] MEDS: Levothyroxine Sodium 112 MCG TAB PO SCH (05:18)
[2020-08-08] MEDS: Acetaminophen 500 MG TAB PO PRN ×3 (05:20→23:07)
--- NOTE | 2020-08-08 06:36 | PRG ---
DATE OF SERVICE: Patient has no air leak this morning. Her chest tube total is about 400 cc suggesting about 300 cc of clear fluid overnight. She has no new complaints other than some sporadic episodes of pain. She is asking if she can take her home Spiriva and we will arrange for this. Otherwise, no complaints. Her incision was inspected and is healing nicely. Plan on removing chest tubes probably in the morning and if she is able to void, consider discharge. We will also start some gabapentin as I anticipate some issues with pain management post-epidural removal. Job ID: [id number]
--- NOTE | 2020-08-08 08:12 | RAD ---
1 VIEW CHEST: Date: 08/08/2020 HISTORY: Post thoracotomy. Follow-up evaluation. COMPARISON: 08/07/2020. FINDINGS: Two right-sided thoracostomy tube remains in place and unchanged in position. There is mild volume lo ss of the right hemithorax compared to the left, with mild elevation of the right hemidiaphragm. Mini mal linear scarring is seen at the right lung base with mild increased interstitial densities also pr esent at the right lung base. There is probable small right apical pneumothorax. Left lung is clear. Cardiac silhouette is magnified by projection, but stable in size. No other interval change. IMPRESSION: Two right-sided thoracostomy tubes remain in place with a small right apical pneumothorax. There is m ild generalized volume loss in the right hemithorax compared to the left. POS: OFF
[2020-08-08] MEDS: ALPRAZolam 0.25 MG TAB PO SCH ×4 (08:26→23:08)
[2020-08-08] MEDS: Polyethylene Glycol 3350 17 GM Packet PO SCH (08:26)
[2020-08-08] MEDS: Gabapentin 300 MG CAP PO SCH ×3 (08:26→20:34)
[2020-08-08] MEDS: Senokot 8.6 MG TAB PO SCH ×2 (08:27→20:35)
[2020-08-08] MEDS ORDERED: ALPRAZolam 0.25 MG TAB PO SCH (09:00)
[2020-08-08] MEDS: SYNTHROID 112 MCG PO SCH ×3 (11:35→21:01)
--- NOTE | 2020-08-08 15:34 | PRG ---
DATE OF SERVICE: 08/08/2020 SUBJECTIVE: Ivette Robles still has chest tube. No air leak. It is anticipated it may come out tomorrow. She ambulated around . Her chest x-ray today had a tiny pneumothorax at the apex. She says her sats were 92% when she got back from a walk, walking without oxygen. Her lungs are clear. She has her Spiriva in the room, but has not been using it. I will give her an ipratropium for breathing treatment tonight, tomorrow morning and that may lead to improvement in her gas exchange. She can take her Spiriva if she wishes. Job ID: [id number]
[2020-08-08] MEDS: Enoxaparin Sodium 30 MG/0.3 ML SYRINGE SC SCH (20:35)
[2020-08-09] MEDS: Ipratropium Bromide 2.5 ml Neb NEB PRN ×2 (02:51→14:28)
[2020-08-09] MEDS: Acetaminophen 500 MG TAB PO PRN ×3 (05:41→20:34)
[2020-08-09] MEDS: Levothyroxine Sodium 112 MCG TAB PO SCH (05:51)
[2020-08-09] MEDS ORDERED: Furosemide 20 MG TAB PO SCH (07:00)
[2020-08-09] MEDS ORDERED: Furosemide 40 MG TAB PO SCH (07:00)
--- NOTE | 2020-08-09 07:52 | RAD ---
XR Chest 1 View Portable History: Thoracotomy Comparison: Radiograph prior day Findings: Right thoracostomy tubes are in similar location. Small right pneumothorax with pleural taj e between the right posterior third and fourth ribs. This is relatively similar. No left-sided pneumothorax. No consolidation. Impression: No significant interval size change right-sided pneumothorax.
[2020-08-09] MEDS: Senokot 8.6 MG TAB PO SCH ×2 (09:09→20:36)
[2020-08-09] MEDS: ALPRAZolam 0.25 MG TAB PO SCH ×3 (09:10→20:36)
[2020-08-09] MEDS: Gabapentin 300 MG CAP PO SCH ×3 (09:10→20:35)
[2020-08-09] MEDS: Polyethylene Glycol 3350 17 GM Packet PO SCH (09:12)
--- NOTE | 2020-08-09 14:11 | PQF ---
CLINICAL DOCUMENTATION CLARIFICATION FORM: Dear Dr. Ribeiro Date: 08/09/2020 Please exercise your independent, professional judgment in responding to the clarification form. Clinical indicators are provided on the bottom of this form for your review. Please check appropriate box(es): [ ] Pneumothorax is a complication of current/recent surgery [ y] Pneumothorax is not a complication of current/recent surgery [ ] Other diagnosis [ ] Unable to determine In addition, please specify: Present on Admission (POA): [ ] Yes [ ] No [ ] Unable to determine For continuity of documentation, please document condition throughout progress notes and discharge summary. Thank You. To be completed by CDI/Coding staff for physician review: CLINICAL INDICATORS - SIGNS / SYMPTOMS / LABS / RESULTS AND LOCATION IN MR *08/01 Imaging ([facility]) Chest 1 view. S/p thoracotomy. Findings: 2 right-sided chest tubes are seen. There is a small right apical pneumothorax. Impression: S/P r thoracotomy and a small right-sided pneumothorax *08/08 pn ([facility]) Subjective: still has chest tube. No air leak. Her chest x-ray today had a tiny pneumothorax at the apex. RISK FACTORS / RESULTS AND LOCATION IN MR 08/01 Operative Note ([facility]) Post-op dx: Non-small cell carcinoma with negative margins, Procedure: R upper lobectomy. TREATMENT / RESULTS AND LOCATION IN MR *Imaging Order XR Chest 1 view: 08/01, 08/02, /08/03, 08/04. 08/05, 08/06, 08/07, 08/08, 08/09 *08/08 pn ([facility]) Plan on removing chest tubes in the morning and if she is able to void, consider discharge Thank you, Lizzie Barnes, RN, BSN [email or web address] This is a permanent part of the Medical Record [facility]
[2020-08-09] MEDS: Enoxaparin Sodium 30 MG/0.3 ML SYRINGE SC SCH (20:36)
[2020-08-09] MEDS: traMADol HCl 50 MG TAB PO PRN ×2 (22:41→23:33)
[2020-08-10] MEDS: traMADol HCl 50 MG TAB PO PRN (05:34)
[2020-08-10] MEDS: Levothyroxine Sodium 112 MCG TAB PO SCH (05:43)
--- NOTE | 2020-08-10 06:18 | PRG ---
DATE OF SERVICE: 08/10/2020 The patient's vital signs have been stable with slight trend toward elevated blood pressure. She states that she had some pain yesterday, but rested well last night. Her chest tube has had minimal output, but she continues to have a very small leak with coughing only. Chest x-ray is pending. I have placed her back on suction. Her chest incision looks okay with some minimal erythema, probably due to contact with the bed. I will ask the nurses to change her chest tube dressing today, and chest x-ray will be reviewed later. Job ID: [id number]
[2020-08-10] MEDS: Ondansetron PF 4 MG/2 ML Vial IVP PRN (06:24)
[2020-08-10] MEDS: Gabapentin 300 MG CAP PO SCH ×3 (09:09→21:57)
[2020-08-10] MEDS: ALPRAZolam 0.25 MG TAB PO SCH ×3 (09:10→21:57)
[2020-08-10] MEDS: Polyethylene Glycol 3350 17 GM Packet PO SCH (09:14)
[2020-08-10] MEDS: Senokot 8.6 MG TAB PO SCH ×2 (09:15→21:58)
--- NOTE | 2020-08-10 09:53 | RAD ---
PORTABLE CHEST: 08/10/20 PROVIDED CLINICAL HISTORY: Status post thoracotomy. COMPARISON: 08/09/2020 FINDINGS: There is lucency present at the right lung base, presumably reflecting loculated pleural gas. Right-s ided chest tubes remain in place. The left lung appears clear. There is no evidence for pleural fluid . The cardiac and mediastinal silhouette is unchanged in appearance. IMPRESSION: Probable loculated pleural gas at the inferior right hemithorax. POS: ALICJA
[2020-08-10] MEDS: Acetaminophen 500 MG TAB PO PRN (13:29)
--- NOTE | 2020-08-10 18:26 | PRG ---
DATE OF SERVICE: SUBJECTIVE: She has been able to ambulate. Chest tube was returned to suction because of small leak. Her pain is well controlled. She is taking a regular diet. She is getting a little anxious to show recovery and discharge. PHYSICAL EXAMINATION: VITAL SIGNS: Blood pressure 125/61, saturation 92% on room air. She is afebrile with heart rate of 85. GENERAL: She is in no distress. CHEST: She has good inspiratory effort. She has tube associated pleural rub on the right. Chest tubes do not demonstrate a leak even with cough maneuvers. Output is fairly low. HEART: Regular rate and rhythm. ABDOMEN: Soft. She has no organomegaly. LABORATORY DATA: None. X-ray today shows small loculated pneumothorax in the base. IMPRESSION: Status post right thoracotomy with resection of jck-ntfwo-chhl carcinoma, adenocarcinoma type, with clear margins and no nodes. Status post right thoracotomy with resection of malignancy, complicated by postoperative leak. PLAN: We will continue chest tube suction. To my assessment, no leak was present, but certainly it could be intermittent. We will continue to follow. Job ID: [id number]
[2020-08-10] MEDS: Enoxaparin Sodium 30 MG/0.3 ML SYRINGE SC SCH (21:58)
[2020-08-11] MEDS: traMADol HCl 50 MG TAB PO PRN ×4 (00:32→20:49)
[2020-08-11] MEDS: Ondansetron PF 4 MG/2 ML Vial IVP PRN (06:53)
[2020-08-11] MEDS: Levothyroxine Sodium 112 MCG TAB PO SCH (06:55)
[2020-08-11] MEDS: Gabapentin 300 MG CAP PO SCH ×3 (08:19→20:09)
[2020-08-11] MEDS: Polyethylene Glycol 3350 17 GM Packet PO SCH (08:21)
[2020-08-11] MEDS: ALPRAZolam 0.25 MG TAB PO SCH ×3 (08:21→20:09)
[2020-08-11] MEDS: Senokot 8.6 MG TAB PO SCH ×2 (08:21→20:10)
--- NOTE | 2020-08-11 10:47 | RAD ---
PORTABLE CHEST: 08/11/20 PROVIDED CLINICAL HISTORY: Status post thoracotomy. COMPARISON: 08/10/2020 FINDINGS: The cardiac and mediastinal silhouette are unchanged in appearance. Right-sided pneumothorax with rig ht-sided chest tubes are demonstrated. The left lung appears clear. There is no pleural fluid evident . IMPRESSION: Persistent right pneumothorax. POS: ALICJA
--- NOTE | 2020-08-11 11:10 | PRG ---
DATE OF SERVICE: 08/11/2020 The patient has had very little output from her chest tube. It is about 850. She is on suction with fluctuation in her air chamber. I did not appreciate an air leak today with coughing, although the bead does go down to the bottom of the chamber with coughing. Her chest x-ray looks fine, although the radiologist had marked an apical pneumothorax. I should note that she had an apical tent created and this probably accounts for that appearance without real pneumothorax. She looks a lot better today, sitting up in the chair on her computer. We will plan on continued suction today and decision-making again tomorrow as to whether to stop suction or continue. Job ID: [id number]
[2020-08-11] MEDS: Acetaminophen 500 MG TAB PO PRN (13:08)
--- NOTE | 2020-08-11 17:22 | PRG ---
DATE OF SERVICE: 08/11/2020 SUBJECTIVE: She has not been extremely ambulatory. Her chest tube remains at suction without evidence of ongoing leak. She tells me that the plan is to probably reassess her x-ray tomorrow and possibly convert to water-seal and then begin discontinuing chest tubes at that point. OBJECTIVE: VITAL SIGNS: Blood pressure is 152/86, saturation 93% on room air. She is afebrile. Heart rate 72. LUNGS: Show a bit of rhonchi on the right, but no wheezing. HEART: Regular rate and rhythm. ABDOMEN: Soft. There is no organomegaly. She has no edema. LABORATORY DATA: Chest x-ray today shows chest tubes on the right to be in good position. There is a small apical pneumothorax. I suspect this may in part be related to post thoracotomy void and she may be left with a component of fibrothorax in the apex. IMPRESSION: 1. Status post right upper lobectomy for tdu-wovab-pllc carcinoma. Margins are negative and nodes were negative. She has had a small apical void/pneumothorax and a leak, but the leak seems to have slowed and not present today. 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 2. Chronic obstructive pulmonary disease. PLAN: We will continue suction until tomorrow and likely go to water seal thereafter. Job ID: [id number]
[2020-08-11] MEDS: Enoxaparin Sodium 30 MG/0.3 ML SYRINGE SC SCH (20:10)
[2020-08-12] MEDS: Levothyroxine Sodium 112 MCG TAB PO SCH (06:06)
[2020-08-12] MEDS: traMADol HCl 50 MG TAB PO PRN ×3 (06:21→20:24)
--- NOTE | 2020-08-12 08:53 | PRG ---
DATE OF SERVICE: 08/12/2020 The patient's chest x-ray shows a small subpulmonic pneumothorax; however, on examination, she has no air leak and she is on continuous suction. We will go ahead and stop the suction this morning and reassess her later today. Job ID: [id number]
--- NOTE | 2020-08-12 09:02 | RAD ---
CHEST 1 VIEW PORTABLE: Date: 08/12/2020 HISTORY: Follow-up right thoracotomy. COMPARISON: 08/11/2020. FINDINGS: Stable right-sided chest tubes. Overall stable appearing air within the pleural space including over the apical region as well as the right lung base region. Heart size is upper range of normal. Left ch est is stable. No evidence for confluent pneumonia or overt edema. IMPRESSION: Stable right chest tubes and right-sided pleural air. POS: RRE
[2020-08-12] MEDS: Gabapentin 300 MG CAP PO SCH ×3 (09:55→20:22)
[2020-08-12] MEDS: ALPRAZolam 0.25 MG TAB PO SCH ×3 (09:58→20:23)
[2020-08-12] MEDS: Polyethylene Glycol 3350 17 GM Packet PO SCH (09:59)
[2020-08-12] MEDS: Senokot 8.6 MG TAB PO SCH ×2 (09:59→20:23)
[2020-08-12] MEDS: Acetaminophen 500 MG TAB PO PRN (19:07)
--- NOTE | 2020-08-12 19:42 | PRG ---
DATE OF SERVICE: 08/12/2020 Ms. Robles is still in the hospital. She is doing well. She is no longer requiring her nebulized Atrovent. She said it was fine out her nose too much. She still has chest tube that is to water seal. Vital signs have been stable. She is afebrile. She is wheezing. She is still not completely expanded on her chest x-ray. We will continue to follow intermittently while she is in the hospital. Job ID: [id number]
[2020-08-12] MEDS: Enoxaparin Sodium 30 MG/0.3 ML SYRINGE SC SCH (20:23)
[2020-08-13] MEDS: traMADol HCl 50 MG TAB PO PRN (04:20)
[2020-08-13] MEDS: Levothyroxine Sodium 112 MCG TAB PO SCH (05:54)
[2020-08-13 07:41] VITALS: BP 162/90; TEMP 97.7
[2020-08-13] MEDS: ALPRAZolam 0.25 MG TAB PO SCH (08:42)
[2020-08-13] MEDS: Gabapentin 300 MG CAP PO SCH (08:43)
[2020-08-13] MEDS: Polyethylene Glycol 3350 17 GM Packet PO SCH (08:46)
[2020-08-13] MEDS: Senokot 8.6 MG TAB PO SCH (08:46)
--- NOTE | 2020-08-13 10:27 | RAD ---
PORTABLE CHEST: Date: 08/13/2020 HISTORY: Status post thoracotomy. COMPARISON: Prior day's exam. FINDINGS: Two right chest tubes remain unchanged in position. There is a small right-sided pneumothorax, perhap s minimally improved as compared to the prior exam. Still some component of this is loculated in the right lung base, and also somewhat difficult to visualize apical pneumothorax. Chain-type sutures are seen in the right upper lobe. IMPRESSION: Some very slight improvement to the right-sided pneumothorax as compared to the prior study. POS: TE
--- NOTE | 2020-08-13 11:20 | DIS ---
DATE OF ADMISSION: 08/01/2020 DATE OF DISCHARGE: 08/13/2020 This is a pleasant 70-year-old female, who underwent a right upper lobectomy on 08/01. At that time, a right upper lobe mass returned poorly differentiated adenocarcinoma with a 5.3 cm maximum diameter. Margins were negative and 11 total lymph nodes were examined and were negative, making her at T3 N0 lung cancer. Her postoperative course was really uneventful, except for a very small persistent air leak that delayed her discharge a number of days. Her tube was ultimately removed on 08/13. She is to be discharged home on her admitting medicines and she will receive a prescription for gabapentin and tramadol. Discharge and followup instructions have been given. Job ID: [id number]
== END 2020-08-13 09:45 | disposition home or self-care (01) | DRG 164 ==
LOC: SURG A 08-01 06:20 → CCU 08-01 15:57 → SJJU 08-02 16:28
PROVIDERS: ADMIT Thoracic Surgery (Cardiothoracic Vascular Surgery); ATTEND Thoracic Surgery (Cardiothoracic Vascular Surgery)
PROC: 0BBC0ZZ Excision of Right Upper Lung Lobe, Open Approach (ICD-10-PCS; principal; 2020-08-01)
PROC: 0W9900Z Drainage of Right Pleural Cavity with Drainage Device, Open Approach (ICD-10-PCS; 2020-08-01)
DX: C34.11 Malignant neoplasm of upper lobe, right bronchus or lung (principal); J93.83 Other pneumothorax; J93.82 Other air leak; Z20.828 Contact with and (suspected) exposure to other viral communicable diseases; F32.9 Major depressive disorder, single episode, unspecified; J44.9 Chronic obstructive pulmonary disease, unspecified; F41.9 Anxiety disorder, unspecified; I10 Essential (primary) hypertension; E03.9 Hypothyroidism, unspecified; I25.10 Atherosclerotic heart disease of native coronary artery without angina pectoris; Z79.890 Hormone replacement therapy; Z79.899 Other long term (current) drug therapy; Z87.891 Personal history of nicotine dependence; Z88.8 Allergy status to other drugs, medicaments and biological substances
CPT/HCPCS: 71045; 80048; 85025; 85027; 86850; 86900; 86901; 87635; 88309; 88313; 88331; 88332; 88341; 88342; 93005; J0690; J1200; J1642; J1650; J1885; J2001; J2250; J2405; J2704; J3010; J3490; Q0163; U0003

== ENCOUNTER 2020-09-03 08:56 | Outpatient (CLI) | payer MEDICARE, OTHER ==
--- NOTE | 2020-09-03 09:12 | RAD ---
RADIOGRAPH CHEST 2 VIEW: DATE: 09/03/2020 TIME: 9:04 AM HISTORY: 70-year-old female with dyspnea COMPARISON: 08/13/2020 FINDINGS: The right-sided chest tubes have been removed. No pneumothorax visible currently. Again noted is the right diaphragmatic elevation. Tracheal deviation to the right slightly. Slightly greater degree of stranding at right base. New small lucencies at right apex may represent air cysts or bullae. No card iomegaly, pulmonary edema, acute consolidation, or pleural effusion.. IMPRESSION: 1) right-sided pulmonary volume loss due to right upper lobectomy. 2) no acute findings
== END 2020-09-03 08:57 | disposition home or self-care (01) ==
LOC: BICRAD 08:56
PROVIDERS: ATTEND Internal Medicine Critical Care Medicine
DX: R06.00 Dyspnea, unspecified (principal); J98.4 Other disorders of lung; Z90.2 Acquired absence of lung [part of]
CPT/HCPCS: 71046

== ENCOUNTER 2020-11-11 07:36 | Outpatient (CLI) | payer MEDICARE, OTHER ==
--- NOTE | 2020-11-11 09:26 | CT ---
CT THORAX WITH CONTRAST: DATE: 11/11/2020 HISTORY: 70-year-old female with malignant neoplasm of overlapping sites of right bronchus and lung: Small ernestine l carcinoma. Follow-up. Patient had nonallergic unpleasant reaction (ju?) To prednisone, during cardiac catheterization. The prednisone was given because she had history of allergic reaction to shrimp. The patient did not give convincing history of allergic reaction to iodinated contrast. Patient was supposed to have been premedicated, but she refuses to take prednisone. Preparing for this CT, she did not follow the conventional premedication regimen. Instead she took pr ednisone last night, and one this morning. Patient was monitored for 45 minutes after IV injection for this CT. She had no allergic reaction. COMPARISON: 07/11/2020 FINDINGS: The previously demonstrated large right upper lobe pulmonary tumor has been surgically resected. Ther e are suture lines at the right hilum, and associated architectural changes in the right lung, including expansion of right lower lobe and right middle lobe. No evidence of neoplastic tumor recurrence. No hilar or mediastinal lymphadenopathy. No pleural effusion or pneumothorax. No destructive osseous lesion. No adrenal mass. Atherosclerosis without aneurysm or dissection of thoracic aorta. No cardiomegaly or pericardial effusion. Centrilobular emphysematous changes diffusely, mild to moderate. IMPRESSION: 1) status post right upper lobectomy. 2) no evidence of recurrent, residual, or metastatic neoplasm within the chest. 3) centrilobular emphysema 4) the patient does not have convincing history of allergy to iodinated contrast, and may not require premedication in the future.
[2020-11-11] MEDS ORDERED: Iopamidol 370 76% 100 ML VIAL ONE (10:21)
== END 2020-11-11 07:37 | disposition home or self-care (01) ==
LOC: CT 07:36
PROVIDERS: ATTEND Internal Medicine Hematology & Oncology
DX: C34.81 Malignant neoplasm of overlapping sites of right bronchus and lung (principal); J43.2 Centrilobular emphysema; Z90.2 Acquired absence of lung [part of]
CPT/HCPCS: 71260; 82565; Q9967

== ENCOUNTER 2021-02-13 09:07 | Outpatient (CLI) | payer MEDICARE, OTHER | END 2021-02-13 09:08 | disposition home or self-care (01) | LOC: BICRAD 09:07 | PROVIDERS: ATTEND Thoracic Surgery (Cardiothoracic Vascular Surgery) | DX: C34.11 Malignant neoplasm of upper lobe, right bronchus or lung (principal) | CPT/HCPCS: 71046 ==

== ENCOUNTER 2021-07-01 15:22 | Outpatient (CLI) | payer MEDICARE, OTHER | END 2021-07-01 15:23 | disposition home or self-care (01) | LOC: BICMAMMO 15:22 | PROVIDERS: ATTEND Family Medicine | DX: Z12.31 Encounter for screening mammogram for malignant neoplasm of breast (principal) | CPT/HCPCS: 77063; 77067 ==

== ENCOUNTER 2021-09-10 08:31 | Outpatient (CLI) | payer MEDICARE, OTHER ==
[2021-09-10] MEDS ORDERED: Iopamidol 370 76% 100 ML VIAL ONE (09:25)
== END 2021-09-10 08:32 | disposition home or self-care (01) ==
LOC: BICCT 08:31
PROVIDERS: ATTEND Internal Medicine Hematology & Oncology
DX: C34.81 Malignant neoplasm of overlapping sites of right bronchus and lung (principal)
CPT/HCPCS: 71260; 82565; Q9967

== ENCOUNTER 2021-09-30 08:10 | Outpatient (CLI) | payer MEDICARE, OTHER | END 2021-09-30 08:11 | disposition home or self-care (01) | LOC: BICRAD 08:10 | PROVIDERS: ATTEND Thoracic Surgery (Cardiothoracic Vascular Surgery) | DX: C34.11 Malignant neoplasm of upper lobe, right bronchus or lung (principal); Z98.890 Other specified postprocedural states | CPT/HCPCS: 71046 ==

== ENCOUNTER 2022-03-18 08:16 | Outpatient (CLI) | payer MEDICARE, OTHER ==
[2022-03-18] MEDS ORDERED: Iopamidol-370 76% 500 ML 1 ML ONE (09:43)
== END 2022-03-18 08:17 | disposition home or self-care (01) ==
LOC: BICCT 08:16
PROVIDERS: ATTEND Internal Medicine Hematology & Oncology
DX: C34.81 Malignant neoplasm of overlapping sites of right bronchus and lung (principal)
CPT/HCPCS: 71260; 82565; Q9967

== ENCOUNTER 2022-07-02 14:51 | Outpatient (CLI) | payer MEDICARE, OTHER | END 2022-07-02 14:52 | disposition home or self-care (01) | LOC: BICMAMMO 14:51 | PROVIDERS: ATTEND Family Medicine | DX: Z12.31 Encounter for screening mammogram for malignant neoplasm of breast (principal); Z80.3 Family history of malignant neoplasm of breast; Z85.118 Personal history of other malignant neoplasm of bronchus and lung | CPT/HCPCS: 77063; 77067 ==

== ENCOUNTER 2022-09-16 09:02 | Outpatient (CLI) | payer MEDICARE, OTHER ==
[2022-09-16] MEDS ORDERED: Iopamidol 370 76% 100 ML VIAL ONE (11:08)
== END 2022-09-16 09:03 | disposition home or self-care (01) ==
LOC: BICCT 09:02
PROVIDERS: ATTEND Internal Medicine Hematology & Oncology
DX: C34.81 Malignant neoplasm of overlapping sites of right bronchus and lung (principal)
CPT/HCPCS: 71260; 82565; Q9967

== ENCOUNTER 2023-02-15 10:29 | Outpatient (CLI) | payer MEDICARE, OTHER | END 2023-02-15 10:30 | disposition home or self-care (01) | LOC: RAD 10:29 | PROVIDERS: ATTEND Internal Medicine Critical Care Medicine | DX: R06.00 Dyspnea, unspecified (principal) | CPT/HCPCS: 71046 ==

== ENCOUNTER 2023-04-01 12:59 | Outpatient (CLI) | payer MEDICARE, OTHER | END 2023-04-01 13:00 | disposition home or self-care (01) | LOC: SCSMRI 12:59 | PROVIDERS: ATTEND Internal Medicine Hematology & Oncology | DX: C34.81 Malignant neoplasm of overlapping sites of right bronchus and lung (principal) | CPT/HCPCS: 70553 ==

== ENCOUNTER 2023-11-08 10:51 | Outpatient (CLI) | payer MEDICARE, OTHER | END 2023-11-08 10:52 | disposition home or self-care (01) | LOC: BICRAD 10:51 | PROVIDERS: ATTEND Family Medicine | DX: S73.191S Other sprain of right hip, sequela (principal); M25.552 Pain in left hip; M25.551 Pain in right hip; M25.562 Pain in left knee; M25.561 Pain in right knee ==

== ENCOUNTER 2024-04-17 09:22 | Outpatient (CLI) | payer MEDICARE, OTHER ==
[2024-04-17] MEDS ORDERED: Lidocaine 1% PF 5 ML VIAL ONE (09:37)
[2024-04-17] MEDS ORDERED: Sodium Bicarbonate 2.5 MEQ/5 ML SDV ONE (09:38)
[2024-04-17] MEDS ORDERED: Iopamidol 15 ML ONE (09:50)
[2024-04-17] MEDS ORDERED: Bupivacaine 0.25% 10 ML VIAL FS SCH (10:00)
== END 2024-04-17 09:23 | disposition home or self-care (01) ==
LOC: RAD 09:22
PROVIDERS: ATTEND Orthopaedic Surgery
PROC: 3E0U3BZ Introduction of Anesthetic Agent into Joints, Percutaneous Approach (ICD-10-PCS; principal; 2024-04-17)
DX: M16.12 Unilateral primary osteoarthritis, left hip (principal)
CPT/HCPCS: 20610; 77002; J0665; Q9967

== ENCOUNTER 2024-07-24 14:10 | Outpatient (CLI) | payer MEDICARE, OTHER | END 2024-07-24 14:11 | disposition home or self-care (01) | LOC: SCSMRI 14:10 | PROVIDERS: ATTEND Psychiatry & Neurology Neurology | DX: M48.02 Spinal stenosis, cervical region (principal); M47.812 Spondylosis without myelopathy or radiculopathy, cervical region | CPT/HCPCS: 72156 ==

== ENCOUNTER 2024-10-03 01:33 | Emergency (ER) | payer MEDICARE, OTHER ==
[2024-10-03] MEDS ORDERED: Acetaminophen 500 MG TAB ONE (01:57)
[2024-10-03 02:30] LABS: #Basophils 0.05 10x3/uL (0.0-0.2); #Eosinophils Less than 0.03 10x3/uL (0.0-0.7); %Basophils 0.7 % (0.0-1.0); %Eosinophils 0.1 % (0.0-10.0); %Lymphocytes 5.5 % (21.0-51.0); %Monocytes 13.3 % (0.0-10.0); %Neutrophils 80.1 % (42.0-75.0); Hematocrit 38.7 % (36.0-47.0); Hemoglobin 12.7 g/dL (12.0-16.0); Mean Corpuscular HGB CONC 32.8 g/dL (32.0-36.0); Mean Corpuscular Hemoglobin 32.6 pg (27.0-31.0); Mean Corpuscular Volume 99.5 fL (78.0-98.0); Platelet Count 215 10x3/uL (130-400); RBC Distribution Width 13.3 % (11.5-14.5); Red Blood Cell (RBC) Count 3.89 mill/uL (4.20-5.40)
[2024-10-03 02:46] LABS: ALT (SGPT) 10 U/L (8-55); AST (SGOT) 16 U/L (5-34); Albumin 3.8 g/dL (3.4-4.8); Alkaline Phosphatase 27 U/L (40-110); Anion Gap 12 mmol/L (10-20); BUN (Urea Nitrogen) 12 mg/dL (9.8-20.1); Bilirubin, Total 0.3 mg/dL (0.2-1.2); Calc. Creatinine Clearance 0 mL/min (70-130); Carbon Dioxide 24 mmol/L (23-31); Chloride 100 mmol/L (98-107); Estimated GFR 66; Globulin 3.5 g/dL (2.4-3.5); Glucose 128 mg/dL (83-110); Potassium 4.3 mmol/L (3.5-5.1); Protein, Total 7.3 g/dL (5.8-8.1); Sodium 132 mmol/L (136-145)
[2024-10-03 02:50] LABS: Troponin I Less than 0.010 ng/mL (< 0.028)
[2024-10-03] MEDS ORDERED: Ketorolac Tromethamine 30 MG (1 mL) VIAL ONE (03:20)
== END 2024-10-03 03:37 | disposition home or self-care (01) ==
LOC: ERS 01:33
DX: U07.1 COVID-19 (principal); J44.9 Chronic obstructive pulmonary disease, unspecified; I10 Essential (primary) hypertension; E03.9 Hypothyroidism, unspecified; Z87.891 Personal history of nicotine dependence; Z79.899 Other long term (current) drug therapy
CPT/HCPCS: 71045; 80053; 83880; 84484; 85025; 85379; 87040; 87081; 87428; 87430; 93005; 96374; 99285; J1885; 36415

== ENCOUNTER 2024-10-09 14:54 | Outpatient (CLI) | payer MEDICARE, OTHER | END 2024-10-09 14:55 | disposition home or self-care (01) | LOC: BICRAD 14:54 | PROVIDERS: ATTEND Family Medicine | DX: U07.1 COVID-19 (principal) | CPT/HCPCS: 71046 ==

== ENCOUNTER 2024-10-19 12:50 | Outpatient (CLI) | payer MEDICARE, OTHER | END 2024-10-19 12:51 | disposition home or self-care (01) | LOC: BICMAMMO 12:50 | DX: Z12.31 Encounter for screening mammogram for malignant neoplasm of breast (principal); Z80.3 Family history of malignant neoplasm of breast; Z85.110 Personal history of malignant carcinoid tumor of bronchus and lung | CPT/HCPCS: 77063; 77067 ==

== ENCOUNTER 2024-11-03 12:02 | Outpatient (CLI) | payer MEDICARE, OTHER | END 2024-11-03 12:03 | disposition home or self-care (01) | LOC: BICULT 12:02 | PROVIDERS: ATTEND Internal Medicine Hematology & Oncology | DX: C34.81 Malignant neoplasm of overlapping sites of right bronchus and lung (principal); E04.1 Nontoxic single thyroid nodule; R91.1 Solitary pulmonary nodule; Z90.2 Acquired absence of lung [part of]; R89.9 Unspecified abnormal finding in specimens from other organs, systems and tissues | CPT/HCPCS: 36415; 71250; 76536; 82390; 82525 ==